=== PATIENT | male | born 1950 | race Caucasian/White ===

== ENCOUNTER 2021-01-04 07:41 | Inpatient (IN) | payer OTHER ==
[2021-01-04] MEDS ORDERED: PANTOPRAZOLE SODIUM 40 MG VIAL IVPUSH ONE (07:57)
[2021-01-04] MEDS ORDERED: ALBUTEROL SO4 2.5/IPRATROPIUM 0.5 INH SOL 3 ML VIAL.NEB. NEB ONE (08:30)
[2021-01-04 08:59] LABS: BASO % 0.1 % (0-2.0); HEMOGLOBIN 13.2 GM/dL (11.7-16.9); LYMPH % 2.8 % (8-40); MCH 26.2 pg (25.7-33.7); MCHC 32.1 g/dl (32.0-35.9); MEAN CELL VOLUME 81.7 fl (80-96); MEAN PLT VOLUME 8.1 fl (7.5-11.1); MONO % 1.9 % (3.8-10.2); NEUT % 95.2 % (42.8-82.8); PLATELET COUNT 394 K/MM3 (134-434); RBC 5.02 M/mm3 (4.00-5.60); RDW 20.8 % (11.9-15.9); WHITE BLOOD COUNT 15.7 K/mm3 (4.0-10.0)
[2021-01-04 09:01] LABS: VENOUS BASE EXCESS 1.9 mmol/L (-2-2); VENOUS O2 SATURATION 45.1 % (70-80); VENOUS PCO2 64.3 mmHg (38-52); VENOUS PH 7.29 (7.310-7.410)
[2021-01-04] MEDS ORDERED: VANCOMYCIN 1 GM in D5W (PRE-DOCKED) 1,000 MG/250 ML IVPB ONE (09:02)
[2021-01-04] MEDS ORDERED: PIPERACILLIN/TAZOB 3.375 GM 3.375 GM in DEXTROSE 5%-WATER - 50 ML IVPB ONE (09:02)
[2021-01-04 09:05] LABS: INR 1.14 (0.83-1.09); PROTHROMBIN TIME (PATIENT) 13.7 SEC (9.7-13.0)
[2021-01-04 09:08] LABS: ACTIVATED PTT 26.8 SECONDS (25.2-36.5)
[2021-01-04 09:09] LABS: CHLORIDE 95 mmol/L (98-107); SODIUM 133 mmol/L (136-145)
[2021-01-04 09:13] LABS: ALBUMIN 2.8 g/dl (3.4-5.0); BLOOD UREA NITROGEN 30.9 mg/dL (7-18); CALCIUM 9.8 mg/dL (8.5-10.1); LIPASE 132 U/L (73-393)
[2021-01-04 09:14] LABS: ANION GAP 7 MMOL/L (8-16); CO2 31 mmol/L (21-32); GLUCOSE,RANDOM 109 mg/dL (74-106)
[2021-01-04 09:16] LABS: CREATININE 0.6 mg/dL (0.55-1.3); SGOT/AST 50 U/L (15-37); SGPT/ALT 25 U/L (13-61)
[2021-01-04 09:17] LABS: BILIRUBIN,TOTAL 0.3 mg/dL (0.2-1); TOT PROT 9.8 g/dl (6.4-8.2)
[2021-01-04 09:18] LABS: ALK PHOS 126 U/L (45-117)
[2021-01-04] MEDS ORDERED: SODIUM CHLORIDE 0.9% 500 ML INFUS.BAG IV ONE (09:24)
[2021-01-04 09:34] LABS: LACTIC ACID 3.2 mmol/L (0.4-2.0)
[2021-01-04 10:30] LABS: ANISOCYTOSIS 1+; MACROCYTOSIS 0; PLATELET ESTIMATE NORMAL
[2021-01-04] MEDS ORDERED: ACETAMINOPHEN INJECTION 100 ML IVPB ONE (11:17)
[2021-01-04] MEDS ORDERED: ACETAMINOPHEN 1000 MG/100 ML VIAL (NON FORMULARY) IVPB ONE (11:17)
[2021-01-04] MEDS ORDERED: PIPERACILLIN/TAZOB 3.375 GM 3.375 GM/50 ML BAG IVPB ONE ×2 (11:18→12:58)
[2021-01-04] MEDS ORDERED: VANCOMYCIN 1 GRAM (PRE-DOCKED) 1,000 MG/250 ML BAG IVPB ONE (11:18)
[2021-01-04 14:28] LABS: CALCIUM 8.8 mg/dL (8.5-10.1)
[2021-01-04 14:29] LABS: ALBUMIN 2.2 g/dl (3.4-5.0); BLOOD UREA NITROGEN 30.3 mg/dL (7-18)
[2021-01-04] MEDS ORDERED: morphine SULFATE 4 MG/ML VIAL ONE (14:30)
[2021-01-04 14:32] LABS: CREATININE 0.4 mg/dL (0.55-1.3)
[2021-01-04 14:33] LABS: BILIRUBIN,TOTAL 0.4 mg/dL (0.2-1)
[2021-01-04 14:35] LABS: TOT PROT 7.2 g/dl (6.4-8.2)
[2021-01-04] MEDS ORDERED: FAMOTIDINE 20 MG/50 ML IVPB 20 MG/50 ML MG IVPB ONE ×2 (15:14→16:32)
[2021-01-04] MEDS ORDERED: morphine CARPU-JECT 4 MG/1 ML DISP.SYRIN IVPUSH ONE (16:32)
[2021-01-04] MEDS ORDERED: METOPROLOL TARTRATE 5 MG/5 ML VIAL IVPUSH PRN (17:30)
[2021-01-04 17:51] LABS: HEMATOCRIT 28.1 % (35.4-49); HEMOGLOBIN 8.9 GM/dL (11.7-16.9); MCH 25.6 pg (25.7-33.7); MCHC 31.5 g/dl (32.0-35.9); MEAN CELL VOLUME 81.2 fl (80-96); MEAN PLT VOLUME 7.9 fl (7.5-11.1); PLATELET COUNT 291 K/MM3 (134-434); RBC 3.46 M/mm3 (4.00-5.60); RDW 20.2 % (11.9-15.9); WHITE BLOOD COUNT 16.6 K/mm3 (4.0-10.0)
[2021-01-04] MEDS: DEXTROSE 5%-NORMAL SALINE 1,000 ML IV SCH (19:57)
[2021-01-04 20:16] LABS: EPI CELLS >36 /uL (0-25.1); HYALINE CASTS 5 /uL (0-3.1); PH,URINE 6.5 (5.0-8.0); URINE APPEARANCE CLEAR; URINE BACTERIA 34 /uL (0-1359); URINE BILIRUBIN NEGATIVE (NEGATIVE); URINE COLOR YELLOW; URINE GLUCOSE (UA) NEGATIVE (NEGATIVE); URINE KETONE NEGATIVE (NEGATIVE); URINE LEUK ESTERASE 1+ (NEGATIVE); URINE NITRITE NEGATIVE (NEGATIVE); URINE PROTEIN 1+ (NEGATIVE); URINE RBC 22 /uL (0-23.9); URINE WBC 91 /uL (0-25.8)
[2021-01-04] MEDS: INSULIN SLIDING SCALE (NOVOLOG) 1 VIAL SQ SCH (23:24)
[2021-01-05] MEDS ORDERED: ACETAMINOPHEN 1000 MG/100 ML VIAL (NON FORMULARY) IVPB ONE (01:06)
[2021-01-05] MEDS: INSULIN SLIDING SCALE (NOVOLOG) 1 VIAL SQ SCH ×4 (07:29→22:54)
[2021-01-05 08:10] LABS: HEMATOCRIT 26.6 % (35.4-49); HEMOGLOBIN 8.5 GM/dL (11.7-16.9); MCH 26.4 pg (25.7-33.7); MCHC 31.8 g/dl (32.0-35.9); MEAN CELL VOLUME 83.1 fl (80-96); MEAN PLT VOLUME 7.9 fl (7.5-11.1); PLATELET COUNT 244 K/MM3 (134-434); RDW 20.2 % (11.9-15.9); WHITE BLOOD COUNT 10.3 K/mm3 (4.0-10.0)
[2021-01-05 08:22] LABS: ALBUMIN 2.1 g/dl (3.4-5.0); BLOOD UREA NITROGEN 19.5 mg/dL (7-18); CALCIUM 8.3 mg/dL (8.5-10.1); MAGNESIUM 1.8 mg/dL (1.8-2.4)
[2021-01-05 08:25] LABS: CREATININE 0.4 mg/dL (0.55-1.3); PHOSPHOROUS 2.7 mg/dL (2.5-4.9)
[2021-01-05 08:26] LABS: BILIRUBIN,TOTAL 0.4 mg/dL (0.2-1); TOT PROT 6.8 g/dl (6.4-8.2)
[2021-01-05] MEDS ORDERED: PANTOPRAZOLE SODIUM 40 MG/100 ML BAG IVPB ONE (09:08)
[2021-01-05] MEDS: PANTOPRAZOLE SODIUM 40 MG VIAL IVPUSH SCH (09:10)
[2021-01-05] MEDS ORDERED: PIPERACILLIN/TAZOB 3.375 GM 3.375 GM/50 ML BAG IVPB ONE ×2 (11:17→18:35)
[2021-01-05] MEDS: PIPERACILLIN/TAZOB 3.375 GM 3.375 GM in DEXTROSE 5%-WATER - 50 ML IVPB SCH ×2 (11:24→19:00)
[2021-01-05] MEDS: DEXTROSE 5%-NORMAL SALINE 1,000 ML IV SCH ×2 (17:33→22:55)
[2021-01-05] MEDS: POLYETHYLENE GLYCOL 3350 119 GM BTL GT SCH (22:55)
[2021-01-06] MEDS ORDERED: PIPERACILLIN/TAZOBACTAM 3.375 GM VIAL IVPB ONE ×3 (01:20→17:53)
[2021-01-06] MEDS ORDERED: DEXTROSE 5%-WATER - 50 ML IVPB ONE ×3 (01:20→17:53)
[2021-01-06] MEDS: PIPERACILLIN/TAZOB 3.375 GM 3.375 GM in DEXTROSE 5%-WATER - 50 ML IVPB SCH ×3 (01:59→18:23)
[2021-01-06] MEDS: INSULIN SLIDING SCALE (NOVOLOG) 1 VIAL SQ SCH ×4 (06:47→22:15)
[2021-01-06] MEDS ORDERED: PNEUMOC 13-VAL CONJ-DIP CRM/PF 0.5 ML DISP.SYRIN IM ONE (10:00)
[2021-01-06] MEDS: POLYETHYLENE GLYCOL 3350 119 GM BTL GT SCH ×2 (10:48→22:15)
[2021-01-06 11:20] LABS: BASO % 0.5 % (0-2.0); HEMATOCRIT 24.5 % (35.4-49); HEMOGLOBIN 7.8 GM/dL (11.7-16.9); LYMPH % 10.8 % (8-40); MCH 26.3 pg (25.7-33.7); MCHC 31.8 g/dl (32.0-35.9); MEAN CELL VOLUME 82.8 fl (80-96); MEAN PLT VOLUME 7.7 fl (7.5-11.1); MONO % 4.7 % (3.8-10.2); PLATELET COUNT 225 K/MM3 (134-434); RBC 2.95 M/mm3 (4.00-5.60); RDW 19.8 % (11.9-15.9); WHITE BLOOD COUNT 8.3 K/mm3 (4.0-10.0)
[2021-01-06] MEDS: PANTOPRAZOLE SODIUM 40 MG VIAL IVPUSH SCH (11:24)
[2021-01-06 11:42] LABS: ALBUMIN 1.9 g/dl (3.4-5.0); BLOOD UREA NITROGEN 11.9 mg/dL (7-18); CALCIUM 8.7 mg/dL (8.5-10.1)
[2021-01-06 11:45] LABS: CREATININE 0.3 mg/dL (0.55-1.3)
[2021-01-06 11:47] LABS: BILIRUBIN,TOTAL 0.5 mg/dL (0.2-1); TOT PROT 6.5 g/dl (6.4-8.2)
[2021-01-06] MEDS: AMINO ACIDS/PROTEIN HYDROLYS 30 ML LIQUID.PKT GT SCH (18:22)
[2021-01-06] MEDS: DEXTROSE 5%-NORMAL SALINE 1,000 ML IV SCH (18:27)
[2021-01-06] MEDS: KCL 10 MEQ IVPB 10 MEQ/100 ML INFUS.BAG IVPB SCH ×2 (20:22→22:15)
[2021-01-07] MEDS ORDERED: DEXTROSE 5%-WATER - 50 ML IVPB ONE ×3 (00:58→18:38)
[2021-01-07] MEDS ORDERED: PIPERACILLIN/TAZOBACTAM 3.375 GM VIAL IVPB ONE ×3 (00:58→18:38)
[2021-01-07] MEDS: PIPERACILLIN/TAZOB 3.375 GM 3.375 GM in DEXTROSE 5%-WATER - 50 ML IVPB SCH ×3 (01:08→18:56)
[2021-01-07] MEDS: INSULIN SLIDING SCALE (NOVOLOG) 1 VIAL SQ SCH (06:00)
[2021-01-07 08:54] LABS: BASO % 0.6 % (0-2.0); EOS % 3.1 % (0-4.5); HEMATOCRIT 25.1 % (35.4-49); LYMPH % 12.7 % (8-40); MCH 26.5 pg (25.7-33.7); MCHC 31.8 g/dl (32.0-35.9); MEAN CELL VOLUME 83.4 fl (80-96); MEAN PLT VOLUME 7.9 fl (7.5-11.1); MONO % 6.1 % (3.8-10.2); NEUT % 77.5 % (42.8-82.8); PLATELET COUNT 237 K/MM3 (134-434); RBC 3.02 M/mm3 (4.00-5.60); RDW 19.6 % (11.9-15.9); WHITE BLOOD COUNT 7.3 K/mm3 (4.0-10.0)
[2021-01-07 09:15] LABS: ALBUMIN 1.9 g/dl (3.4-5.0); BLOOD UREA NITROGEN 13.7 mg/dL (7-18); CALCIUM 8.6 mg/dL (8.5-10.1)
[2021-01-07 09:19] LABS: CREATININE 0.4 mg/dL (0.55-1.3)
[2021-01-07 09:20] LABS: BILIRUBIN,TOTAL 0.3 mg/dL (0.2-1); TOT PROT 6.6 g/dl (6.4-8.2)
[2021-01-07] MEDS: AMINO ACIDS/PROTEIN HYDROLYS 30 ML LIQUID.PKT GT SCH ×2 (09:28→18:56)
[2021-01-07] MEDS: MULTIVIT-MINERALS ORAL LIQUID GT SCH (09:29)
[2021-01-07] MEDS: POLYETHYLENE GLYCOL 3350 119 GM BTL GT SCH ×3 (09:29→22:02)
[2021-01-07] MEDS: PANTOPRAZOLE SODIUM 40 MG VIAL IVPUSH SCH (09:32)
[2021-01-07] MEDS ORDERED: PT OWN MED DRAWER 7, Y5N ONE (09:36)
[2021-01-07] MEDS ORDERED: POTASSIUM CHLORIDE ORAL LIQUID 20 MEQ/15 ML GT ONE (09:59)
[2021-01-07] MEDS ORDERED: LOSARTAN POTASSIUM 50 MG TABLET GT SCH (10:15)
[2021-01-07] MEDS ORDERED: METOPROLOL TARTRATE 25 MG TABLET (FP) GT ONE (21:27)
[2021-01-08] MEDS ORDERED: DEXTROSE 5%-WATER - 50 ML IVPB ONE ×3 (01:47→17:19)
[2021-01-08] MEDS ORDERED: PIPERACILLIN/TAZOBACTAM 3.375 GM VIAL IVPB ONE ×3 (01:47→17:19)
[2021-01-08] MEDS: PIPERACILLIN/TAZOB 3.375 GM 3.375 GM in DEXTROSE 5%-WATER - 50 ML IVPB SCH ×3 (01:55→17:39)
[2021-01-08 08:40] LABS: BASO % 0.8 % (0-2.0); EOS % 4.6 % (0-4.5); HEMATOCRIT 25.1 % (35.4-49); LYMPH % 15.2 % (8-40); MCH 26.5 pg (25.7-33.7); MCHC 31.9 g/dl (32.0-35.9); MEAN CELL VOLUME 83.3 fl (80-96); MEAN PLT VOLUME 7.5 fl (7.5-11.1); MONO % 6.5 % (3.8-10.2); NEUT % 72.9 % (42.8-82.8); PLATELET COUNT 240 K/MM3 (134-434); RBC 3.01 M/mm3 (4.00-5.60); WHITE BLOOD COUNT 7.7 K/mm3 (4.0-10.0)
[2021-01-08 09:01] LABS: CALCIUM 8.4 mg/dL (8.5-10.1)
[2021-01-08 09:02] LABS: BLOOD UREA NITROGEN 16.3 mg/dL (7-18)
[2021-01-08 09:06] LABS: CREATININE 0.3 mg/dL (0.55-1.3)
[2021-01-08 09:07] LABS: BILIRUBIN,TOTAL 0.2 mg/dL (0.2-1); TOT PROT 6.6 g/dl (6.4-8.2)
[2021-01-08] MEDS: AMINO ACIDS/PROTEIN HYDROLYS 30 ML LIQUID.PKT GT SCH ×2 (09:54→17:39)
[2021-01-08] MEDS: MULTIVIT-MINERALS ORAL LIQUID GT SCH (09:54)
[2021-01-08] MEDS: PANTOPRAZOLE SODIUM 40 MG VIAL IVPUSH SCH (09:54)
[2021-01-08] MEDS: LOSARTAN POTASSIUM 50 MG TABLET GT SCH (09:54)
[2021-01-08] MEDS: POLYETHYLENE GLYCOL 3350 119 GM BTL GT SCH ×2 (09:54→21:27)
[2021-01-08] MEDS: COLLAGENASE CLOSTRIDIUM HIST. 30 GRAMS TUBE TP PRN (17:39)
[2021-01-09] MEDS ORDERED: DEXTROSE 5%-WATER - 50 ML IVPB ONE ×3 (02:57→16:37)
[2021-01-09] MEDS ORDERED: PIPERACILLIN/TAZOBACTAM 3.375 GM VIAL IVPB ONE ×3 (02:57→16:37)
[2021-01-09] MEDS: PIPERACILLIN/TAZOB 3.375 GM 3.375 GM in DEXTROSE 5%-WATER - 50 ML IVPB SCH ×3 (02:57→18:24)
[2021-01-09] MEDS: AMINO ACIDS/PROTEIN HYDROLYS 30 ML LIQUID.PKT GT SCH ×2 (11:11→16:39)
[2021-01-09] MEDS: LOSARTAN POTASSIUM 50 MG TABLET GT SCH (11:11)
[2021-01-09] MEDS: COLLAGENASE CLOSTRIDIUM HIST. 30 GRAMS TUBE TP PRN (11:12)
[2021-01-09] MEDS: MULTIVIT-MINERALS ORAL LIQUID GT SCH (11:12)
[2021-01-09] MEDS: PANTOPRAZOLE SODIUM 40 MG VIAL IVPUSH SCH (11:12)
[2021-01-09] MEDS: ACETAMINOPHEN 650 MG/20.3 ML ORAL SOLUTION (CUPS) GT PRN ×3 (11:14→21:51)
[2021-01-09] MEDS: POLYETHYLENE GLYCOL 3350 119 GM BTL GT SCH ×2 (11:27→21:31)
[2021-01-09 16:08] LABS: GLIADIN ANTIBODY IGA 5 units (0-19); GLIADIN ANTIBODY IGG 2 units (0-19); TRANSGLUTAMINASE IGG 4 U/mL (0-5)
[2021-01-10] MEDS ORDERED: PIPERACILLIN/TAZOBACTAM 3.375 GM VIAL IVPB ONE ×3 (00:19→17:29)
[2021-01-10] MEDS ORDERED: DEXTROSE 5%-WATER - 50 ML IVPB ONE ×3 (00:19→17:29)
[2021-01-10] MEDS: PIPERACILLIN/TAZOB 3.375 GM 3.375 GM in DEXTROSE 5%-WATER - 50 ML IVPB SCH ×3 (01:29→17:43)
[2021-01-10] MEDS ORDERED: PT OWN MED DRAWER 7, Y5N ONE (09:53)
[2021-01-10] MEDS: MULTIVIT-MINERALS ORAL LIQUID GT SCH (10:20)
[2021-01-10] MEDS: PANTOPRAZOLE SODIUM 40 MG VIAL IVPUSH SCH (10:20)
[2021-01-10] MEDS: LOSARTAN POTASSIUM 50 MG TABLET GT SCH (10:20)
[2021-01-10] MEDS: AMINO ACIDS/PROTEIN HYDROLYS 30 ML LIQUID.PKT GT SCH ×2 (10:20→17:43)
[2021-01-10] MEDS: POLYETHYLENE GLYCOL 3350 119 GM BTL GT SCH ×2 (10:20→21:01)
[2021-01-10] MEDS: LIDOCAINE 5% TOPICAL PATCH TP SCH (17:44)
[2021-01-10 19:36] VITALS: BMI 19.1
[2021-01-10] MEDS: ASCORBIC ACID 500 MG TABLET (FP) PO SCH (22:08)
[2021-01-11] MEDS ORDERED: DEXTROSE 5%-WATER - 50 ML IVPB ONE ×3 (01:02→17:28)
[2021-01-11] MEDS ORDERED: PIPERACILLIN/TAZOBACTAM 3.375 GM VIAL IVPB ONE ×3 (01:02→17:28)
[2021-01-11] MEDS: PIPERACILLIN/TAZOB 3.375 GM 3.375 GM in DEXTROSE 5%-WATER - 50 ML IVPB SCH ×3 (02:50→18:01)
[2021-01-11] MEDS: LIDOCAINE PATCH REMOVAL MC SCH (05:21)
[2021-01-11] MEDS ORDERED: PT OWN MED DRAWER 7, Y5N ONE (11:19)
[2021-01-11] MEDS: AMINO ACIDS/PROTEIN HYDROLYS 30 ML LIQUID.PKT GT SCH ×2 (11:56→18:01)
[2021-01-11] MEDS: PANTOPRAZOLE SODIUM 40 MG VIAL IVPUSH SCH (11:57)
[2021-01-11] MEDS: ZINC SULFATE 220 MG CAPSULE (FP) PO SCH (11:57)
[2021-01-11] MEDS: POLYETHYLENE GLYCOL 3350 119 GM BTL GT SCH ×2 (11:57→21:54)
[2021-01-11] MEDS: ASCORBIC ACID 500 MG TABLET (FP) PO SCH ×2 (11:57→21:56)
[2021-01-11] MEDS: MULTIVIT-MINERALS ORAL LIQUID GT SCH (11:57)
[2021-01-11] MEDS: LOSARTAN POTASSIUM 50 MG TABLET GT SCH (11:57)
[2021-01-11] MEDS: COLLAGENASE CLOSTRIDIUM HIST. 30 GRAMS TUBE TP PRN (11:58)
[2021-01-11] MEDS: LIDOCAINE 5% TOPICAL PATCH TP SCH (18:01)
[2021-01-12] MEDS ORDERED: PIPERACILLIN/TAZOBACTAM 3.375 GM VIAL IVPB ONE ×2 (02:26→11:09)
[2021-01-12] MEDS ORDERED: DEXTROSE 5%-WATER - 50 ML IVPB ONE ×2 (02:26→11:09)
[2021-01-12] MEDS: PIPERACILLIN/TAZOB 3.375 GM 3.375 GM in DEXTROSE 5%-WATER - 50 ML IVPB SCH ×2 (02:33→11:20)
[2021-01-12] MEDS: LIDOCAINE PATCH REMOVAL MC SCH (05:24)
[2021-01-12] MEDS: ASCORBIC ACID 500 MG TABLET (FP) PO SCH (11:19)
[2021-01-12] MEDS: AMINO ACIDS/PROTEIN HYDROLYS 30 ML LIQUID.PKT GT SCH (11:19)
[2021-01-12] MEDS: LOSARTAN POTASSIUM 50 MG TABLET GT SCH (11:19)
[2021-01-12] MEDS: PANTOPRAZOLE SODIUM 40 MG VIAL IVPUSH SCH (11:20)
[2021-01-12] MEDS: MULTIVIT-MINERALS ORAL LIQUID GT SCH (11:21)
[2021-01-12] MEDS ORDERED: PT OWN MED DRAWER 7, Y5N ONE (11:21)
[2021-01-12] MEDS: ZINC SULFATE 220 MG CAPSULE (FP) PO SCH (11:23)
[2021-01-12] MEDS: POLYETHYLENE GLYCOL 3350 119 GM BTL GT SCH (11:23)
[2021-01-12 11:46] VITALS: PULSE 70
[2021-01-12 15:39] VITALS: BP 127/75; TEMP 98.8
== END 2021-01-12 16:30 | DRG 207 ==
LOC: JER 07:41 → JERBED 09:27 → J5S 01-05 20:04
PROVIDERS: ADMIT Family Medicine; ATTEND Family Medicine
PROC: 5A1955Z Respiratory Ventilation, Greater than 96 Consecutive Hours (ICD-10-PCS; principal; 2021-01-04)
DX: J69.0 Pneumonitis due to inhalation of food and vomit (principal); L89.113 Pressure ulcer of right upper back, stage 3; L89.154 Pressure ulcer of sacral region, stage 4; K92.0 Hematemesis; R64 Cachexia; Z68.1 Body mass index [BMI] 19.9 or less, adult; J96.10 Chronic respiratory failure, unspecified whether with hypoxia or hypercapnia; E46 Unspecified protein-calorie malnutrition; Z99.11 Dependence on respirator [ventilator] status; Z93.0 Tracheostomy status; J44.9 Chronic obstructive pulmonary disease, unspecified; E11.9 Type 2 diabetes mellitus without complications; K21.9 Gastro-esophageal reflux disease without esophagitis; D72.829 Elevated white blood cell count, unspecified; K59.00 Constipation, unspecified; E87.6 Hypokalemia; D64.9 Anemia, unspecified
CPT/HCPCS: 36415; 71045-TC-FY; 71260-TC; 74018-TC-FY; 74177-TC; 80053; 80061; 81003; 82272; 82550; 82607; 82728; 82784; 82803; 82962; 83036; 83516; 83540; 83550; 83605; 83690; 83721; 83735; 84100; 84436; 84443; 84484; 85025; 85027; 85045; 85610; 85730; 87040; 87070; 87086; 87186; 87205; 87804; 90670; 93005; 93010; 94002; 97161-GP; 99285-25; C9803; J0131; Q9967; U0003; U0005

== ENCOUNTER 2021-04-07 14:46 | Inpatient (IN) | payer OTHER ==
[2021-04-07 16:20] LABS: HEMATOCRIT 22.2 % (35.4-49); HEMOGLOBIN 7.2 GM/dL (11.7-16.9); MCH 27.4 pg (25.7-33.7); MCHC 32.6 g/dl (32.0-35.9); MEAN CELL VOLUME 84.3 fl (80-96); MEAN PLT VOLUME 7.1 fl (7.5-11.1); PLATELET COUNT 481 10^3/uL (134-434); RBC 2.64 M/mm3 (4.00-5.60); RDW 15.4 % (11.9-15.9); WHITE BLOOD COUNT 11.3 K/mm3 (4.0-10.0)
[2021-04-07 16:29] LABS: INR 1.12 (0.83-1.09); PROTHROMBIN TIME (PATIENT) 13.5 SEC (9.7-13.0)
[2021-04-07 16:32] LABS: ACTIVATED PTT 27.7 SECONDS (25.2-36.5)
[2021-04-07 16:45] LABS: ALBUMIN 1.8 g/dl (3.4-5.0)
[2021-04-07 16:48] LABS: CREATININE 0.3 mg/dL (0.55-1.3)
[2021-04-07 16:50] LABS: BILIRUBIN,TOTAL 0.2 mg/dL (0.2-1); TOT PROT 6.9 g/dl (6.4-8.2)
[2021-04-07] MEDS ORDERED: morphine CARPU-JECT 4 MG/1 ML DISP.SYRIN IVPUSH ONE ×2 (16:55→20:04)
[2021-04-07] MEDS ORDERED: ACETAMINOPHEN 650 MG/20.3 ML ORAL SOLUTION (CUPS) GT PRN (17:16)
[2021-04-07] MEDS ORDERED: morphine SULFATE 4 MG/ML VIAL ONE ×2 (17:18→20:07)
[2021-04-07 17:55] LABS: ANISOCYTOSIS 0; MACROCYTOSIS 0; PLATELET ESTIMATE INCREASED
[2021-04-07] MEDS ORDERED: hydrALAZINE HCL 10 MG TABLET PO SCH (18:00)
[2021-04-07] MEDS ORDERED: LIDOCAINE 5% TOPICAL PATCH ONE (19:36)
[2021-04-07] MEDS: AMINO ACIDS/PROTEIN HYDROLYS 30 ML LIQUID.PKT GT SCH (20:10)
[2021-04-07] MEDS: LIDOCAINE 5% TOPICAL PATCH TP SCH (20:10)
[2021-04-07] MEDS ORDERED: HYDROmorphone HCL CARPU-JECT 2 MG/1 ML DISP.SYRIN IVPUSH ONE (21:09)
[2021-04-07] MEDS ORDERED: HYDROmorphone HCl 2 MG/ML VIAL ONE (21:15)
[2021-04-08] MEDS: hydrALAZINE HCL 10 MG TABLET GT SCH ×5 (01:08→21:05)
[2021-04-08] MEDS: POLYETHYLENE GLYCOL (HEALTHYLAX) 3350 17 GM PACKET GT SCH ×3 (01:08→21:08)
[2021-04-08] MEDS ORDERED: FUROSEMIDE 40 MG/4 ML INJECTABLE VIAL IVPUSH ONE (01:15)
[2021-04-08] MEDS: FAMOTIDINE 40 MG/5 ML ORAL SUSPENSION NGT SCH ×3 (05:55→21:08)
[2021-04-08] MEDS: GABAPENTIN 250 MG/5 ML ORAL SOLUTION, 470 ML BOTTLE GT SCH ×4 (05:55→21:07)
[2021-04-08] MEDS: MOMETASONE FUROATE 220 MCG/IH INHALER IH SCH ×2 (05:55→21:05)
[2021-04-08] MEDS ORDERED: PATIENT'S OWN MEDICATION (NON-FORMULARY) (Lidocaine Patch Removal 1 EACH Each) MC SCH (06:00)
[2021-04-08] MEDS: LIDOCAINE PATCH REMOVAL MC SCH (06:17)
[2021-04-08] MEDS: AMINO ACIDS/PROTEIN HYDROLYS 30 ML LIQUID.PKT GT SCH ×2 (08:49→18:24)
[2021-04-08 10:21] LABS: EPI CELLS 5 /uL (0-25.1); HYALINE CASTS 0 /uL (0-3.1); URINE APPEARANCE CLEAR; URINE BACTERIA 117 /uL (0-1359); URINE BILIRUBIN NEGATIVE (NEGATIVE); URINE COLOR YELLOW; URINE GLUCOSE (UA) NEGATIVE (NEGATIVE); URINE KETONE NEGATIVE (NEGATIVE); URINE LEUK ESTERASE TRACE (NEGATIVE); URINE NITRITE NEGATIVE (NEGATIVE); URINE PROTEIN NEGATIVE (NEGATIVE); URINE RBC 10 /uL (0-23.9); URINE UROBILINOGEN 0.2 mg/dL (0.2-1.0); URINE WBC 25 /uL (0-25.8)
[2021-04-08 10:42] LABS: HEMATOCRIT 29.4 % (35.4-49); HEMOGLOBIN 9.9 GM/dL (11.7-16.9); MCH 28.3 pg (25.7-33.7); MCHC 33.5 g/dl (32.0-35.9); MEAN CELL VOLUME 84.4 fl (80-96); MEAN PLT VOLUME 7.1 fl (7.5-11.1); PLATELET COUNT 489 10^3/uL (134-434); RBC 3.49 M/mm3 (4.00-5.60); WHITE BLOOD COUNT 13.8 K/mm3 (4.0-10.0)
[2021-04-08 11:07] LABS: BLOOD UREA NITROGEN 21.5 mg/dL (7-18); CALCIUM 9.1 mg/dL (8.5-10.1)
[2021-04-08 11:09] LABS: ALBUMIN 1.8 g/dl (3.4-5.0); MAGNESIUM 1.9 mg/dL (1.8-2.4)
[2021-04-08 11:11] LABS: CREATININE 0.4 mg/dL (0.55-1.3)
[2021-04-08 11:13] LABS: BILIRUBIN,TOTAL 0.9 mg/dL (0.2-1); TOT PROT 6.8 g/dl (6.4-8.2)
[2021-04-08] MEDS: LOSARTAN POTASSIUM 50 MG TABLET GT SCH (11:21)
[2021-04-08] MEDS ORDERED: SODIUM CHLORIDE 250 ML IV SCH (12:15)
[2021-04-08 13:22] VITALS: BMI 15.3
[2021-04-08] MEDS: LIDOCAINE 5% TOPICAL PATCH TP SCH (18:27)
[2021-04-08] MEDS: POTASSIUM CHLORIDE 10 MEQ in DEXTROSE 5%-NORMAL SALINE 1,000 ML IVPB SCH (20:19)
[2021-04-08] MEDS ORDERED: PT OWN MED DRAWER 7, Y5N ONE (20:44)
[2021-04-09] MEDS: GABAPENTIN 250 MG/5 ML ORAL SOLUTION, 470 ML BOTTLE GT SCH (05:30)
[2021-04-09] MEDS: POTASSIUM CHLORIDE 10 MEQ in DEXTROSE 5%-NORMAL SALINE 1,000 ML IVPB SCH (07:52)
[2021-04-09 09:57] LABS: EOS % 0.8 % (0-4.5); HEMATOCRIT 24.6 % (35.4-49); HEMOGLOBIN 8.3 GM/dL (11.7-16.9); LYMPH % 9.9 % (8-40); MCH 28.5 pg (25.7-33.7); MCHC 33.7 g/dl (32.0-35.9); MEAN CELL VOLUME 84.4 fl (80-96); MEAN PLT VOLUME 6.9 fl (7.5-11.1); MONO % 5.1 % (3.8-10.2); NEUT % 83.2 % (42.8-82.8); PLATELET COUNT 387 10^3/uL (134-434); RBC 2.91 M/mm3 (4.00-5.60); RDW 15.4 % (11.9-15.9); WHITE BLOOD COUNT 9.8 K/mm3 (4.0-10.0)
[2021-04-09] MEDS ORDERED: MULTIVIT-MINERALS ORAL LIQUID PO SCH (10:00)
[2021-04-09] MEDS: AMINO ACIDS/PROTEIN HYDROLYS 30 ML LIQUID.PKT GT SCH (10:22)
[2021-04-09] MEDS: POLYETHYLENE GLYCOL (HEALTHYLAX) 3350 17 GM PACKET GT SCH (10:23)
[2021-04-09] MEDS: FAMOTIDINE 40 MG/5 ML ORAL SUSPENSION NGT SCH (10:23)
[2021-04-09 10:30] VITALS: BP 113/75; PULSE 96; TEMP 99.9
[2021-04-09] MEDS: LOSARTAN POTASSIUM 50 MG TABLET GT SCH (10:31)
[2021-04-09] MEDS: LIDOCAINE PATCH REMOVAL MC SCH (10:31)
[2021-04-09] MEDS: hydrALAZINE HCL 10 MG TABLET GT SCH (10:31)
== END 2021-04-09 14:33 | DRG 811 ==
LOC: JER 14:46 → JERBED 16:43 → J5S 23:28
PROVIDERS: ADMIT Family Medicine; ATTEND Family Medicine
PROC: 5A1945Z Respiratory Ventilation, 24-96 Consecutive Hours (ICD-10-PCS; principal; 2021-04-07)
PROC: 30233N1 Transfusion of Nonautologous Red Blood Cells into Peripheral Vein, Percutaneous Approach (ICD-10-PCS; 2021-04-07)
DX: D64.9 Anemia, unspecified (principal); L89.153 Pressure ulcer of sacral region, stage 3; R64 Cachexia; G91.9 Hydrocephalus, unspecified; G81.90 Hemiplegia, unspecified affecting unspecified side; J96.10 Chronic respiratory failure, unspecified whether with hypoxia or hypercapnia; E46 Unspecified protein-calorie malnutrition; Z68.1 Body mass index [BMI] 19.9 or less, adult; Z93.0 Tracheostomy status; E11.9 Type 2 diabetes mellitus without complications; I25.10 Atherosclerotic heart disease of native coronary artery without angina pectoris; J44.9 Chronic obstructive pulmonary disease, unspecified; I10 Essential (primary) hypertension; I69.391 Dysphagia following cerebral infarction; K21.9 Gastro-esophageal reflux disease without esophagitis; D72.829 Elevated white blood cell count, unspecified
CPT/HCPCS: 36415; 36430; 71045-TC-FY; 80048; 80053; 81003; 82272; 82550; 82962; 83605; 83735; 84443; 84484; 85025; 85027; 85610; 85730; 86078; 86850; 86900; 86901; 86922; 87040; 93005; 93010; 94002; 99285-25; C9803; P9058; U0003; U0005

== ENCOUNTER 2021-04-14 03:22 | Inpatient (IN) | payer OTHER ==
[2021-04-14] MEDS ORDERED: SODIUM CHLORIDE 0.9% 500 ML INFUS.BAG IV ONE ×2 (03:56→06:32)
[2021-04-14 05:21] LABS: HEMATOCRIT 32.6 % (35.4-49); HEMOGLOBIN 10.4 GM/dL (11.7-16.9); MCH 28.3 pg (25.7-33.7); MCHC 32.1 g/dl (32.0-35.9); MEAN CELL VOLUME 88.3 fl (80-96); MEAN PLT VOLUME 7.3 fl (7.5-11.1); PLATELET COUNT 469 10^3/uL (134-434); RBC 3.69 M/mm3 (4.00-5.60); RDW 15.7 % (11.9-15.9); WHITE BLOOD COUNT 14.7 K/mm3 (4.0-10.0)
[2021-04-14 05:39] LABS: CHLORIDE 99 mmol/L (98-107); SODIUM 138 mmol/L (136-145)
[2021-04-14 05:41] LABS: ALBUMIN 1.6 g/dl (3.4-5.0); ANION GAP 7 MMOL/L (8-16); BLOOD UREA NITROGEN 26.3 mg/dL (7-18); CALCIUM 8.6 mg/dL (8.5-10.1); CO2 33 mmol/L (21-32); GLUCOSE,RANDOM 82 mg/dL (74-106)
[2021-04-14 05:44] LABS: CREATININE 0.7 mg/dL (0.55-1.3); SGOT/AST 16 U/L (15-37); SGPT/ALT 18 U/L (13-61)
[2021-04-14 05:46] LABS: BILIRUBIN,TOTAL 0.2 mg/dL (0.2-1); INR 1.13 (0.83-1.09); PROTHROMBIN TIME (PATIENT) 13.6 SEC (9.7-13.0); TOT PROT 6.4 g/dl (6.4-8.2)
[2021-04-14 05:47] LABS: ALK PHOS 86 U/L (45-117)
[2021-04-14 05:48] LABS: ACTIVATED PTT 30.5 SECONDS (25.2-36.5)
[2021-04-14 05:54] LABS: LACTIC ACID 4.1 mmol/L (0.4-2.0)
[2021-04-14 06:21] LABS: EPI CELLS >36 /uL (0-25.1); HYALINE CASTS 10 /uL (0-3.1); URINE APPEARANCE CLOUDY; URINE BACTERIA 7 /uL (0-1359); URINE BILIRUBIN NEGATIVE (NEGATIVE); URINE COLOR DK YELLOW; URINE GLUCOSE (UA) NEGATIVE (NEGATIVE); URINE KETONE TRACE (NEGATIVE); URINE LEUK ESTERASE 3+ (NEGATIVE); URINE NITRITE NEGATIVE (NEGATIVE); URINE PROTEIN TRACE (NEGATIVE); URINE RBC 13 /uL (0-23.9); URINE WBC 312 /uL (0-25.8)
[2021-04-14] MEDS ORDERED: VANCOMYCIN 1 GM in D5W (PRE-DOCKED) 1,000 MG/250 ML IVPB ONE (06:24)
[2021-04-14] MEDS ORDERED: PIPERACILLIN/TAZOB 4.5 GM 4.5 GM in DEXTROSE 5%-WATER 100 ML IVPB ONE (06:24)
[2021-04-14] MEDS ORDERED: PIPERACILLIN/TAZOB 4.5 GM 4.5 GM/100 ML BAG IVPB ONE (06:29)
[2021-04-14] MEDS ORDERED: SODIUM CHLORIDE IV ONE (07:06)
[2021-04-14 07:25] LABS: ARTERIAL BLD GAS O2 SATURATION 99.5 % (95-98); ARTERIAL BLOOD GAS BASE EXCESS 1.1 mmol/L (-2-2); ARTERIAL BLOOD GAS PO2 245.7 mmHg (80-100)
[2021-04-14] MEDS ORDERED: VANCOMYCIN 1 GRAM (PRE-DOCKED) 1,000 MG/250 ML BAG IVPB ONE (07:31)
[2021-04-14] MEDS ORDERED: LACTATED RINGERS SOLUTION 1000 ML INFUS.BAG IV ONE (08:09)
[2021-04-14 08:42] LABS: URINE CRYSTALS CA OXALATE FEW /hpf; YEAST NON SEEN (NEGATIVE)
[2021-04-14 09:54] LABS: ANISOCYTOSIS 1+; MACROCYTOSIS 0; PLATELET ESTIMATE NORMAL
[2021-04-14] MEDS ORDERED: ACETAMINOPHEN 650 MG/20.3 ML ORAL SOLUTION (CUPS) GT PRN (11:45)
[2021-04-14] MEDS ORDERED: FAMOTIDINE 40 MG/5 ML ORAL SUSPENSION NGT SCH (12:00)
[2021-04-14] MEDS: ENOXAPARIN NA (PORCINE) 40 MG/0.4 ML DISP.SYRIN SQ SCH (13:12)
[2021-04-14] MEDS: GABAPENTIN 250 MG/5 ML ORAL SOLUTION, 470 ML BOTTLE GT SCH ×2 (13:13→22:32)
[2021-04-14 13:58] VITALS: BMI 15.4
[2021-04-14] MEDS ORDERED: PIPERACILLIN/TAZOBACTAM 3.375 GM VIAL IVPB ONE (17:37)
[2021-04-14] MEDS ORDERED: DEXTROSE 5%-WATER - 50 ML IVPB ONE (17:38)
[2021-04-14] MEDS: AMINO ACIDS/PROTEIN HYDROLYS 30 ML LIQUID.PKT GT SCH (17:42)
[2021-04-14] MEDS: NOREPINEPHRINE NS PREMIX 8,000 MCG/500 ML BAG IVPB SCH (17:42)
[2021-04-14] MEDS: PIPERACILLIN/TAZOB 3.375 GM 3.375 GM in DEXTROSE 5%-WATER - 50 ML IVPB SCH (17:42)
[2021-04-14] MEDS: VANCOMYCIN 1 GRAM (PRE-DOCKED) 1,000 MG/250 ML BAG IVPB SCH (17:42)
[2021-04-14] MEDS: SODIUM CHLORIDE 1,000 ML IV SCH (18:41)
[2021-04-14] MEDS: MUPIROCIN 2% TOPICAL OINTMENT FOR DECOLONIZATION NS SCH (22:31)
[2021-04-14] MEDS: CHLORHEXIDINE GLUCONATE 4% CLEANSER FOR DECOLONIZATION TP SCH (22:31)
[2021-04-15] MEDS ORDERED: DEXTROSE 5%-WATER - 50 ML IVPB ONE ×3 (01:56→17:57)
[2021-04-15] MEDS ORDERED: PIPERACILLIN/TAZOBACTAM 3.375 GM VIAL IVPB ONE ×3 (01:56→17:57)
[2021-04-15] MEDS: PIPERACILLIN/TAZOB 3.375 GM 3.375 GM in DEXTROSE 5%-WATER - 50 ML IVPB SCH ×3 (02:12→18:32)
[2021-04-15] MEDS: GABAPENTIN 250 MG/5 ML ORAL SOLUTION, 470 ML BOTTLE GT SCH ×3 (05:22→22:01)
[2021-04-15] MEDS: VANCOMYCIN 1 GRAM (PRE-DOCKED) 1,000 MG/250 ML BAG IVPB SCH ×2 (05:49→19:05)
[2021-04-15 07:53] LABS: BASO % 0.5 % (0-2.0); EOS % 0.7 % (0-4.5); HEMATOCRIT 27.9 % (35.4-49); HEMOGLOBIN 9.1 GM/dL (11.7-16.9); LYMPH % 8.6 % (8-40); MCH 28.5 pg (25.7-33.7); MCHC 32.4 g/dl (32.0-35.9); MEAN CELL VOLUME 87.9 fl (80-96); MEAN PLT VOLUME 7.5 fl (7.5-11.1); MONO % 3.7 % (3.8-10.2); NEUT % 86.5 % (42.8-82.8); PLATELET COUNT 324 10^3/uL (134-434); RBC 3.18 M/mm3 (4.00-5.60); RDW 15.9 % (11.9-15.9); WHITE BLOOD COUNT 8.6 K/mm3 (4.0-10.0)
[2021-04-15 08:14] LABS: CALCIUM 8.3 mg/dL (8.5-10.1)
[2021-04-15 08:15] LABS: ALBUMIN 1.3 g/dl (3.4-5.0); BLOOD UREA NITROGEN 19.3 mg/dL (7-18)
[2021-04-15 08:18] LABS: CREATININE 0.3 mg/dL (0.55-1.3)
[2021-04-15 08:20] LABS: BILIRUBIN,TOTAL 0.2 mg/dL (0.2-1)
[2021-04-15] MEDS: ENOXAPARIN NA (PORCINE) 40 MG/0.4 ML DISP.SYRIN SQ SCH (10:17)
[2021-04-15] MEDS: AMINO ACIDS/PROTEIN HYDROLYS 30 ML LIQUID.PKT GT SCH ×2 (10:17→18:32)
[2021-04-15] MEDS: MUPIROCIN 2% TOPICAL OINTMENT FOR DECOLONIZATION NS SCH ×2 (10:17→22:01)
[2021-04-15] MEDS: FAMOTIDINE 40 MG/5 ML ORAL SUSPENSION NGT SCH ×2 (10:18→22:01)
[2021-04-15] MEDS: NOREPINEPHRINE NS PREMIX 8,000 MCG/500 ML BAG IVPB SCH (10:19)
[2021-04-15] MEDS ORDERED: PT OWN MED DRAWER 7, Y5N ONE ×2 (15:04→21:28)
[2021-04-15] MEDS: SODIUM CHLORIDE 1,000 ML IV SCH (18:32)
[2021-04-15] MEDS: CHLORHEXIDINE GLUCONATE 4% CLEANSER FOR DECOLONIZATION TP SCH (22:01)
[2021-04-16] MEDS ORDERED: PIPERACILLIN/TAZOBACTAM 3.375 GM VIAL IVPB ONE ×3 (01:34→16:41)
[2021-04-16] MEDS ORDERED: DEXTROSE 5%-WATER - 50 ML IVPB ONE ×3 (01:34→16:42)
[2021-04-16] MEDS: PIPERACILLIN/TAZOB 3.375 GM 3.375 GM in DEXTROSE 5%-WATER - 50 ML IVPB SCH ×3 (02:15→17:44)
[2021-04-16] MEDS: VANCOMYCIN 1 GRAM (PRE-DOCKED) 1,000 MG/250 ML BAG IVPB SCH ×2 (06:28→18:59)
[2021-04-16] MEDS: GABAPENTIN 250 MG/5 ML ORAL SOLUTION, 470 ML BOTTLE GT SCH ×3 (06:59→21:54)
[2021-04-16] MEDS ORDERED: PT OWN MED DRAWER 7, Y5N ONE (09:38)
[2021-04-16] MEDS: FAMOTIDINE 40 MG/5 ML ORAL SUSPENSION NGT SCH ×2 (09:40→21:54)
[2021-04-16] MEDS: ENOXAPARIN NA (PORCINE) 40 MG/0.4 ML DISP.SYRIN SQ SCH (09:40)
[2021-04-16] MEDS: AMINO ACIDS/PROTEIN HYDROLYS 30 ML LIQUID.PKT GT SCH ×2 (09:40→17:44)
[2021-04-16] MEDS: MUPIROCIN 2% TOPICAL OINTMENT FOR DECOLONIZATION NS SCH (11:18)
[2021-04-16] MEDS: NOREPINEPHRINE NS PREMIX 8,000 MCG/500 ML BAG IVPB SCH (11:18)
[2021-04-17] MEDS ORDERED: PIPERACILLIN/TAZOBACTAM 3.375 GM VIAL IVPB ONE ×3 (00:56→16:56)
[2021-04-17] MEDS ORDERED: DEXTROSE 5%-WATER - 50 ML IVPB ONE ×3 (00:57→16:57)
[2021-04-17] MEDS: PIPERACILLIN/TAZOB 3.375 GM 3.375 GM in DEXTROSE 5%-WATER - 50 ML IVPB SCH ×3 (01:13→17:14)
[2021-04-17] MEDS ORDERED: PT OWN MED DRAWER 7, Y5N ONE ×3 (05:08→21:43)
[2021-04-17] MEDS: GABAPENTIN 250 MG/5 ML ORAL SOLUTION, 470 ML BOTTLE GT SCH ×3 (05:28→21:45)
[2021-04-17] MEDS: VANCOMYCIN 1 GRAM (PRE-DOCKED) 1,000 MG/250 ML BAG IVPB SCH ×2 (05:29→18:34)
[2021-04-17] MEDS: AMINO ACIDS/PROTEIN HYDROLYS 30 ML LIQUID.PKT GT SCH ×2 (09:00→17:14)
[2021-04-17] MEDS: FAMOTIDINE 40 MG/5 ML ORAL SUSPENSION NGT SCH ×2 (10:46→21:45)
[2021-04-17] MEDS: ENOXAPARIN NA (PORCINE) 40 MG/0.4 ML DISP.SYRIN SQ SCH (11:05)
[2021-04-18] MEDS ORDERED: DEXTROSE 5%-WATER - 50 ML IVPB ONE ×3 (00:35→16:22)
[2021-04-18] MEDS ORDERED: PIPERACILLIN/TAZOBACTAM 3.375 GM VIAL IVPB ONE ×3 (00:35→16:22)
[2021-04-18] MEDS: PIPERACILLIN/TAZOB 3.375 GM 3.375 GM in DEXTROSE 5%-WATER - 50 ML IVPB SCH ×3 (01:28→17:25)
[2021-04-18] MEDS: GABAPENTIN 250 MG/5 ML ORAL SOLUTION, 470 ML BOTTLE GT SCH ×3 (05:15→21:46)
[2021-04-18] MEDS: VANCOMYCIN 1 GRAM (PRE-DOCKED) 1,000 MG/250 ML BAG IVPB SCH ×2 (05:47→17:31)
[2021-04-18] MEDS: ENOXAPARIN NA (PORCINE) 40 MG/0.4 ML DISP.SYRIN SQ SCH (09:37)
[2021-04-18] MEDS: AMINO ACIDS/PROTEIN HYDROLYS 30 ML LIQUID.PKT GT SCH ×2 (09:37→16:43)
[2021-04-18] MEDS: FAMOTIDINE 40 MG/5 ML ORAL SUSPENSION NGT SCH ×2 (09:39→21:44)
[2021-04-18] MEDS ORDERED: PT OWN MED DRAWER 7, Y5N ONE ×5 (09:39→21:44)
[2021-04-18] MEDS: COLLAGENASE CLOSTRIDIUM HIST. 30 GRAMS TUBE TP SCH (14:15)
[2021-04-19] MEDS ORDERED: PIPERACILLIN/TAZOBACTAM 3.375 GM VIAL IVPB ONE ×3 (00:57→16:45)
[2021-04-19] MEDS ORDERED: DEXTROSE 5%-WATER - 50 ML IVPB ONE ×3 (00:57→16:45)
[2021-04-19] MEDS: PIPERACILLIN/TAZOB 3.375 GM 3.375 GM in DEXTROSE 5%-WATER - 50 ML IVPB SCH ×3 (01:06→17:54)
[2021-04-19] MEDS ORDERED: PT OWN MED DRAWER 7, Y5N ONE ×3 (06:01→21:57)
[2021-04-19] MEDS: GABAPENTIN 250 MG/5 ML ORAL SOLUTION, 470 ML BOTTLE GT SCH ×3 (06:10→22:54)
[2021-04-19] MEDS: AMINO ACIDS/PROTEIN HYDROLYS 30 ML LIQUID.PKT GT SCH ×2 (12:42→17:54)
[2021-04-19] MEDS: FAMOTIDINE 40 MG/5 ML ORAL SUSPENSION NGT SCH ×2 (12:42→22:54)
[2021-04-19] MEDS: ENOXAPARIN NA (PORCINE) 40 MG/0.4 ML DISP.SYRIN SQ SCH (12:43)
[2021-04-19] MEDS: ACETAMINOPHEN 650 MG/20.3 ML ORAL SOLUTION (CUPS) GT PRN (12:43)
[2021-04-19] MEDS: COLLAGENASE CLOSTRIDIUM HIST. 30 GRAMS TUBE TP SCH (12:43)
[2021-04-19] MEDS ORDERED: ASCORBIC ACID 250 MG TABLET (FP) PO SCH (17:45)
[2021-04-19] MEDS ORDERED: ASCORBIC ACID 500 MG/5 ML PO SCH (18:00)
[2021-04-19] MEDS: MULTIVIT-MINERALS ORAL LIQUID GT SCH (18:39)
[2021-04-19] MEDS: ASCORBIC ACID 500 MG/5 ML GT SCH (18:40)
[2021-04-20] MEDS ORDERED: PIPERACILLIN/TAZOBACTAM 3.375 GM VIAL IVPB ONE ×3 (01:10→17:47)
[2021-04-20] MEDS ORDERED: DEXTROSE 5%-WATER - 50 ML IVPB ONE ×3 (01:10→17:47)
[2021-04-20] MEDS: PIPERACILLIN/TAZOB 3.375 GM 3.375 GM in DEXTROSE 5%-WATER - 50 ML IVPB SCH ×3 (02:01→19:00)
[2021-04-20] MEDS: GABAPENTIN 250 MG/5 ML ORAL SOLUTION, 470 ML BOTTLE GT SCH ×3 (05:22→21:37)
[2021-04-20 08:17] LABS: BASO % 0.9 % (0-2.0); EOS % 2.9 % (0-4.5); HEMATOCRIT 27.2 % (35.4-49); LYMPH % 11.4 % (8-40); MCH 28.3 pg (25.7-33.7); MCHC 32.9 g/dl (32.0-35.9); MEAN CELL VOLUME 86.1 fl (80-96); MEAN PLT VOLUME 7.5 fl (7.5-11.1); MONO % 5.8 % (3.8-10.2); PLATELET COUNT 330 10^3/uL (134-434); RBC 3.16 M/mm3 (4.00-5.60); RDW 15.9 % (11.9-15.9); WHITE BLOOD COUNT 8.6 K/mm3 (4.0-10.0)
[2021-04-20 08:31] LABS: BLOOD UREA NITROGEN 21.4 mg/dL (7-18); CALCIUM 8.3 mg/dL (8.5-10.1); MAGNESIUM 1.7 mg/dL (1.8-2.4)
[2021-04-20 08:34] LABS: CREATININE 0.4 mg/dL (0.55-1.3)
[2021-04-20] MEDS: AMINO ACIDS/PROTEIN HYDROLYS 30 ML LIQUID.PKT GT SCH ×2 (10:13→16:56)
[2021-04-20] MEDS: ASCORBIC ACID 500 MG/5 ML GT SCH (10:14)
[2021-04-20] MEDS: MULTIVIT-MINERALS ORAL LIQUID GT SCH (10:14)
[2021-04-20] MEDS: FAMOTIDINE 40 MG/5 ML ORAL SUSPENSION NGT SCH ×2 (10:14→21:37)
[2021-04-20] MEDS: ENOXAPARIN NA (PORCINE) 40 MG/0.4 ML DISP.SYRIN SQ SCH (10:14)
[2021-04-20] MEDS: COLLAGENASE CLOSTRIDIUM HIST. 30 GRAMS TUBE TP SCH (10:14)
[2021-04-20] MEDS ORDERED: PT OWN MED DRAWER 7, Y5N ONE ×2 (16:22→20:59)
[2021-04-20] MEDS: ACETAMINOPHEN 650 MG/20.3 ML ORAL SOLUTION (CUPS) GT PRN (16:56)
[2021-04-21] MEDS ORDERED: DEXTROSE 5%-WATER - 50 ML IVPB ONE ×3 (01:12→18:05)
[2021-04-21] MEDS ORDERED: PIPERACILLIN/TAZOBACTAM 3.375 GM VIAL IVPB ONE ×3 (01:12→18:05)
[2021-04-21] MEDS: PIPERACILLIN/TAZOB 3.375 GM 3.375 GM in DEXTROSE 5%-WATER - 50 ML IVPB SCH ×3 (01:50→18:11)
[2021-04-21] MEDS ORDERED: PT OWN MED DRAWER 7, Y5N ONE ×2 (04:11→09:51)
[2021-04-21] MEDS: GABAPENTIN 250 MG/5 ML ORAL SOLUTION, 470 ML BOTTLE GT SCH ×3 (05:34→21:14)
[2021-04-21] MEDS: AMINO ACIDS/PROTEIN HYDROLYS 30 ML LIQUID.PKT GT SCH ×2 (09:57→18:11)
[2021-04-21] MEDS: FAMOTIDINE 40 MG/5 ML ORAL SUSPENSION NGT SCH ×2 (09:57→22:41)
[2021-04-21] MEDS: ENOXAPARIN NA (PORCINE) 40 MG/0.4 ML DISP.SYRIN SQ SCH (09:57)
[2021-04-21] MEDS: COLLAGENASE CLOSTRIDIUM HIST. 30 GRAMS TUBE TP SCH (09:58)
[2021-04-21] MEDS: MULTIVIT-MINERALS ORAL LIQUID GT SCH (09:58)
[2021-04-21] MEDS: ASCORBIC ACID 500 MG/5 ML GT SCH (09:58)
[2021-04-22] MEDS ORDERED: PIPERACILLIN/TAZOBACTAM 3.375 GM VIAL IVPB ONE ×3 (00:56→17:57)
[2021-04-22] MEDS ORDERED: DEXTROSE 5%-WATER - 50 ML IVPB ONE ×3 (00:56→17:57)
[2021-04-22] MEDS: PIPERACILLIN/TAZOB 3.375 GM 3.375 GM in DEXTROSE 5%-WATER - 50 ML IVPB SCH ×3 (01:53→18:02)
[2021-04-22] MEDS: GABAPENTIN 250 MG/5 ML ORAL SOLUTION, 470 ML BOTTLE GT SCH ×3 (05:54→21:44)
[2021-04-22] MEDS ORDERED: PT OWN MED DRAWER 7, Y5N ONE (10:12)
[2021-04-22] MEDS: AMINO ACIDS/PROTEIN HYDROLYS 30 ML LIQUID.PKT GT SCH (10:21)
[2021-04-22] MEDS: ASCORBIC ACID 500 MG/5 ML GT SCH (10:21)
[2021-04-22] MEDS: FAMOTIDINE 40 MG/5 ML ORAL SUSPENSION NGT SCH ×2 (10:21→21:44)
[2021-04-22] MEDS: ENOXAPARIN NA (PORCINE) 40 MG/0.4 ML DISP.SYRIN SQ SCH (10:21)
[2021-04-22] MEDS: COLLAGENASE CLOSTRIDIUM HIST. 30 GRAMS TUBE TP SCH (10:21)
[2021-04-22] MEDS: MULTIVIT-MINERALS ORAL LIQUID GT SCH (10:21)
[2021-04-22 11:59] LABS: EOS % 2.8 % (0-4.5); HEMATOCRIT 29.8 % (35.4-49); HEMOGLOBIN 9.6 GM/dL (11.7-16.9); LYMPH % 11.2 % (8-40); MCH 28.4 pg (25.7-33.7); MCHC 32.4 g/dl (32.0-35.9); MEAN CELL VOLUME 87.7 fl (80-96); MEAN PLT VOLUME 7.5 fl (7.5-11.1); MONO % 5.4 % (3.8-10.2); NEUT % 79.6 % (42.8-82.8); PLATELET COUNT 332 10^3/uL (134-434); RDW 16.5 % (11.9-15.9); WHITE BLOOD COUNT 9.3 K/mm3 (4.0-10.0)
[2021-04-22 12:15] LABS: ARTERIAL BLD GAS O2 SATURATION 98.5 % (95-98); ARTERIAL BLOOD GAS BASE EXCESS 7.5 mmol/L (-2-2); ARTERIAL BLOOD GAS PO2 125.4 mmHg (80-100); ARTERIAL BLOOD GAS pH 7.421 (7.350-7.450)
[2021-04-22 12:17] LABS: ALLENS TEST POSITIVE
[2021-04-22 12:18] LABS: VENT MODE SIMV/PSV; VENT RATE 10
[2021-04-22 12:22] LABS: CALCIUM 8.7 mg/dL (8.5-10.1)
[2021-04-22 12:23] LABS: BLOOD UREA NITROGEN 19.1 mg/dL (7-18)
[2021-04-22 12:26] LABS: CREATININE 0.5 mg/dL (0.55-1.3)
[2021-04-22 12:27] LABS: BILIRUBIN,TOTAL 0.2 mg/dL (0.2-1); TOT PROT 7.1 g/dl (6.4-8.2)
[2021-04-22 12:41] LABS: ALBUMIN 1.7 g/dl (3.4-5.0)
[2021-04-22 18:34] VITALS: TEMP 98.8
[2021-04-22] MEDS: ACETAMINOPHEN 650 MG/20.3 ML ORAL SOLUTION (CUPS) GT PRN (23:07)
[2021-04-23] MEDS ORDERED: DEXTROSE 5%-WATER - 50 ML IVPB ONE ×2 (00:16→10:23)
[2021-04-23] MEDS ORDERED: PIPERACILLIN/TAZOBACTAM 3.375 GM VIAL IVPB ONE ×2 (00:16→10:23)
[2021-04-23] MEDS: PIPERACILLIN/TAZOB 3.375 GM 3.375 GM in DEXTROSE 5%-WATER - 50 ML IVPB SCH ×2 (01:33→10:54)
[2021-04-23 06:12] VITALS: BP 111/72
[2021-04-23] MEDS: GABAPENTIN 250 MG/5 ML ORAL SOLUTION, 470 ML BOTTLE GT SCH ×2 (06:15→14:20)
[2021-04-23] MEDS ORDERED: AMINO ACIDS/PROTEIN HYDROLYS 30 ML LIQUID.PKT GT SCH (08:00)
[2021-04-23 08:25] VITALS: PULSE 76
[2021-04-23] MEDS ORDERED: PT OWN MED DRAWER 7, Y5N ONE (10:23)
[2021-04-23] MEDS: MULTIVIT-MINERALS ORAL LIQUID GT SCH (10:51)
[2021-04-23] MEDS: ENOXAPARIN NA (PORCINE) 40 MG/0.4 ML DISP.SYRIN SQ SCH (10:51)
[2021-04-23] MEDS: COLLAGENASE CLOSTRIDIUM HIST. 30 GRAMS TUBE TP SCH (10:52)
[2021-04-23] MEDS: FAMOTIDINE 40 MG/5 ML ORAL SUSPENSION NGT SCH (10:52)
[2021-04-23] MEDS: ASCORBIC ACID 500 MG/5 ML GT SCH (10:52)
== END 2021-04-23 14:26 | DRG 870 ==
LOC: JER 03:22 → JERBED 08:37 → JICU 10:59 → J5S 04-16 13:24
PROVIDERS: ADMIT Family Medicine; ATTEND Family Medicine
PROC: 5A1955Z Respiratory Ventilation, Greater than 96 Consecutive Hours (ICD-10-PCS; principal; 2021-04-14)
PROC: 0D20XUZ Change Feeding Device in Upper Intestinal Tract, External Approach (ICD-10-PCS; 2021-04-20)
DX: A41.52 Sepsis due to Pseudomonas (principal); L89.154 Pressure ulcer of sacral region, stage 4; J69.0 Pneumonitis due to inhalation of food and vomit; R65.21 Severe sepsis with septic shock; J96.11 Chronic respiratory failure with hypoxia; E46 Unspecified protein-calorie malnutrition; G81.90 Hemiplegia, unspecified affecting unspecified side; G91.9 Hydrocephalus, unspecified; E87.2 Acidosis; N39.0 Urinary tract infection, site not specified; R64 Cachexia; Z99.11 Dependence on respirator [ventilator] status; K94.23 Gastrostomy malfunction; I69.391 Dysphagia following cerebral infarction; Z93.0 Tracheostomy status; Z93.1 Gastrostomy status; J44.9 Chronic obstructive pulmonary disease, unspecified; Y83.9 Surgical procedure, unspecified as the cause of abnormal reaction of the patient, or of later complication, without mention of misadventure at the time of the procedure; I10 Essential (primary) hypertension; D72.829 Elevated white blood cell count, unspecified
CPT/HCPCS: 36415; 36600; 70450-TC; 71045-TC-FY; 71250-TC; 74018-TC-FY; 80048; 80053; 81003; 82803; 82962; 83605; 83735; 84484; 85025; 85610; 85730; 87040; 87070; 87086; 87186; 87205; 87804; 93005; 93010; 94002; 99291; 99292; C9803; U0003; U0005

== ENCOUNTER 2021-09-10 13:39 | Inpatient (IN) | payer OTHER ==
[2021-09-10] MEDS ORDERED: SODIUM CHLORIDE 2,422 ML IV ONE (15:08)
[2021-09-10] MEDS ORDERED: VANCOMYCIN 1 GM in D5W (PRE-DOCKED) 1,000 MG/250 ML IVPB ONE (16:14)
[2021-09-10] MEDS ORDERED: PIPERACILLIN/TAZOB 3.375 GM 3.375 GM in DEXTROSE 5%-WATER - 50 ML IVPB ONE (16:14)
[2021-09-10] MEDS ORDERED: VANCOMYCIN 1 GRAM (PRE-DOCKED) 1,000 MG/250 ML BAG IVPB ONE (17:13)
[2021-09-10] MEDS ORDERED: PIPERACILLIN/TAZOB 3.375 GM 3.375 GM/50 ML BAG IVPB ONE (17:13)
[2021-09-10 17:20] LABS: VENOUS BASE EXCESS 9.2 mmol/L (-2-2); VENOUS O2 SATURATION 98.2 % (70-80); VENOUS PCO2 45.3 mmHg (38-52); VENOUS PH 7.487 (7.310-7.410)
[2021-09-10 17:24] LABS: BASO % 0.6 % (0-2.0); EOS % 2.6 % (0-4.5); HEMATOCRIT 23.6 % (35.4-49); HEMOGLOBIN 7.1 GM/dL (11.7-16.9); MCH 23.5 pg (25.7-33.7); MCHC 30.2 g/dl (32.0-35.9); MEAN CELL VOLUME 77.6 fl (80-96); MEAN PLT VOLUME 7.7 fl (7.5-11.1); MONO % 6.6 % (3.8-10.2); NEUT % 77.2 % (42.8-82.8); PLATELET COUNT 430 10^3/uL (134-434); RBC 3.04 M/mm3 (4.00-5.60); RDW 19.9 % (11.9-15.9)
[2021-09-10 17:32] LABS: INR 1.2 (0.83-1.09); PROTHROMBIN TIME (PATIENT) 13.8 SEC (9.7-13.0)
[2021-09-10 17:35] LABS: ACTIVATED PTT 31.1 SECONDS (25.2-36.5)
[2021-09-10 17:39] LABS: CHLORIDE 99 mmol/L (98-107); SODIUM 139 mmol/L (136-145)
[2021-09-10 17:42] LABS: CALCIUM 9.2 mg/dL (8.5-10.1)
[2021-09-10 17:43] LABS: ALBUMIN 1.7 g/dl (3.4-5.0); ANION GAP 2 MMOL/L (8-16); BLOOD UREA NITROGEN 25.2 mg/dL (7-18); CO2 38 mmol/L (21-32); GLUCOSE,RANDOM 79 mg/dL (74-106)
[2021-09-10 17:46] LABS: CREATININE 0.4 mg/dL (0.55-1.3); SGOT/AST 14 U/L (15-37); SGPT/ALT 12 U/L (13-61)
[2021-09-10 17:47] LABS: TOT PROT 7.7 g/dl (6.4-8.2)
[2021-09-10 17:48] LABS: BILIRUBIN,TOTAL 0.2 mg/dL (0.2-1)
[2021-09-10 17:49] LABS: ALK PHOS 85 U/L (45-117)
[2021-09-11] MEDS ORDERED: PIPERACILLIN/TAZOB 4.5 GM 4.5 GM in DEXTROSE 5%-WATER 100 ML IVPB SCH ×2 (02:00→10:00)
[2021-09-11] MEDS ORDERED: VANCOMYCIN/WATER 1,250 MG/250 ML BAG IVPB SCH (04:00)
[2021-09-11] MEDS ORDERED: VANCOMYCIN/WATER BAGS 1,250 MG/250 ML BAG IVPB SCH ×2 (04:00→09:00)
[2021-09-11 06:50] LABS: BASO % 0.9 % (0-2.0); EOS % 3.7 % (0-4.5); LYMPH % 15.1 % (8-40); MCH 22.9 pg (25.7-33.7); MCHC 29.5 g/dl (32.0-35.9); MEAN CELL VOLUME 77.6 fl (80-96); MEAN PLT VOLUME 7.6 fl (7.5-11.1); MONO % 5.7 % (3.8-10.2); NEUT % 74.6 % (42.8-82.8); PLATELET COUNT 406 10^3/uL (134-434); RBC 2.71 M/mm3 (4.00-5.60); RDW 19.5 % (11.9-15.9); WHITE BLOOD COUNT 8.3 K/mm3 (4.0-10.0)
[2021-09-11 06:52] LABS: HEMOGLOBIN 6.2 GM/dL (11.7-16.9)
[2021-09-11 07:14] LABS: CALCIUM 8.8 mg/dL (8.5-10.1)
[2021-09-11 07:15] LABS: BLOOD UREA NITROGEN 21.6 mg/dL (7-18); MAGNESIUM 2.2 mg/dL (1.8-2.4)
[2021-09-11 07:18] LABS: CREATININE 0.3 mg/dL (0.55-1.3); PHOSPHOROUS 3.1 mg/dL (2.5-4.9)
[2021-09-11] MEDS: AMINO ACIDS/PROTEIN HYDROLYS 30 ML LIQUID.PKT GT SCH ×2 (08:51→18:00)
[2021-09-11] MEDS ORDERED: PIPERACILLIN/TAZOB 4.5 GM 4.5 GM/100 ML BAG IVPB ONE (08:54)
[2021-09-11] MEDS: GABAPENTIN 250 MG/5 ML ORAL SOLUTION, 470 ML BOTTLE GT SCH ×3 (09:25→23:08)
[2021-09-11] MEDS: MULTIVIT-MINERALS ORAL LIQUID GT SCH (09:28)
[2021-09-11] MEDS: SODIUM CHLORIDE 1 GM TABLET GT SCH (09:29)
[2021-09-11] MEDS: ASCORBIC ACID 500 MG/5 ML UNIT DOSE CUP GT SCH (09:29)
[2021-09-11] MEDS: ARTIFICIAL TEARS (POLYVINYL ALCOHOL) OPTH DROPS OU SCH ×2 (11:09→23:08)
[2021-09-11] MEDS: COLLAGENASE CLOSTRIDIUM HIST. 30 GRAMS TUBE TP SCH (11:51)
[2021-09-11] MEDS ORDERED: ACETAMINOPHEN 650 MG/20.3 ML ORAL SOLUTION (CUPS) ONE (13:21)
[2021-09-11] MEDS: ACETAMINOPHEN 650 MG/20.3 ML ORAL SOLUTION (CUPS) PO PRN (13:27)
[2021-09-11] MEDS ORDERED: MEROPENEM 1 GM VIAL (RESTRICTED TO ID) IVPB ONE (22:18)
[2021-09-11] MEDS: MEROPENEM 1 GM in DEXTROSE 5%-WATER 100 ML IVPB SCH (22:40)
[2021-09-11] MEDS ORDERED: VANCOMYCIN 1 GRAM (PRE-DOCKED) 1,000 MG/250 ML BAG IVPB ONE (23:36)
[2021-09-12] MEDS: VANCOMYCIN 1 GRAM (PRE-DOCKED) 1,000 MG/250 ML BAG IVPB SCH ×3 (00:02→23:13)
[2021-09-12] MEDS: SENNOSIDES 8.8 MG/5 ML BULK BOTTLE GT SCH ×2 (00:28→22:41)
[2021-09-12] MEDS ORDERED: DEXTROSE 5%-WATER 100 ML IVPB ONE ×3 (02:49→16:42)
[2021-09-12] MEDS ORDERED: MEROPENEM 1 GM VIAL (RESTRICTED TO ID) IVPB ONE ×3 (02:49→16:42)
[2021-09-12] MEDS: MEROPENEM 1 GM in DEXTROSE 5%-WATER 100 ML IVPB SCH ×3 (02:53→17:18)
[2021-09-12] MEDS: AMINO ACIDS/PROTEIN HYDROLYS 30 ML LIQUID.PKT GT SCH ×2 (09:00→17:17)
[2021-09-12 09:25] VITALS: BMI 15.7
[2021-09-12 10:38] LABS: BASO % 1.1 % (0-2.0); EOS % 4.3 % (0-4.5); HEMATOCRIT 25.2 % (35.4-49); HEMOGLOBIN 8.3 GM/dL (11.7-16.9); LYMPH % 12.8 % (8-40); MCH 25.8 pg (25.7-33.7); MCHC 32.9 g/dl (32.0-35.9); MEAN CELL VOLUME 78.4 fl (80-96); MEAN PLT VOLUME 7.4 fl (7.5-11.1); MONO % 5.2 % (3.8-10.2); NEUT % 76.6 % (42.8-82.8); PLATELET COUNT 379 10^3/uL (134-434); RBC 3.22 M/mm3 (4.00-5.60); RDW 18.7 % (11.9-15.9); RETICULOCYTES 2.76 % (0.5-1.5)
[2021-09-12] MEDS: GABAPENTIN 250 MG/5 ML ORAL SOLUTION, 470 ML BOTTLE GT SCH ×3 (11:00→22:40)
[2021-09-12 11:01] LABS: CREATININE 0.4 mg/dL (0.55-1.3)
[2021-09-12] MEDS: ARTIFICIAL TEARS (POLYVINYL ALCOHOL) OPTH DROPS OU SCH ×2 (12:23→22:40)
[2021-09-12] MEDS: COLLAGENASE CLOSTRIDIUM HIST. 30 GRAMS TUBE TP SCH (13:00)
[2021-09-12] MEDS: SODIUM CHLORIDE 1 GM TABLET GT SCH (15:20)
[2021-09-12] MEDS: MULTIVIT-MINERALS ORAL LIQUID GT SCH (15:20)
[2021-09-12] MEDS: ASCORBIC ACID 500 MG/5 ML UNIT DOSE CUP GT SCH (15:20)
[2021-09-12 19:35] LABS: EPI CELLS >36 /uL (0-25.1); HYALINE CASTS 4 /uL (0-3.1); URINE APPEARANCE CLEAR; URINE BACTERIA 0 /uL (0-1359); URINE BILIRUBIN NEGATIVE (NEGATIVE); URINE COLOR YELLOW; URINE GLUCOSE (UA) NEGATIVE (NEGATIVE); URINE KETONE NEGATIVE (NEGATIVE); URINE LEUK ESTERASE TRACE (NEGATIVE); URINE NITRITE NEGATIVE (NEGATIVE); URINE PROTEIN NEGATIVE (NEGATIVE); URINE RBC 11 /uL (0-23.9); URINE WBC 174 /uL (0-25.8)
[2021-09-12 20:12] LABS: YEAST FEW (NEGATIVE)
[2021-09-12] MEDS: PIPERACILLIN/TAZOB 4.5 GM 4.5 GM in DEXTROSE 5%-WATER 100 ML IVPB SCH (22:03)
[2021-09-13] MEDS ORDERED: DEXTROSE 5%-WATER 100 ML IVPB ONE ×3 (02:12→16:39)
[2021-09-13] MEDS ORDERED: MEROPENEM 1 GM VIAL (RESTRICTED TO ID) IVPB ONE ×3 (02:12→16:39)
[2021-09-13] MEDS: MEROPENEM 1 GM in DEXTROSE 5%-WATER 100 ML IVPB SCH ×3 (02:12→17:11)
[2021-09-13] MEDS: GABAPENTIN 250 MG/5 ML ORAL SOLUTION, 470 ML BOTTLE GT SCH ×3 (05:24→21:19)
[2021-09-13] MEDS: ACETAMINOPHEN 650 MG/20.3 ML ORAL SOLUTION (CUPS) PO PRN (05:25)
[2021-09-13] MEDS: AMINO ACIDS/PROTEIN HYDROLYS 30 ML LIQUID.PKT GT SCH ×2 (09:00→17:11)
[2021-09-13] MEDS: MULTIVIT-MINERALS ORAL LIQUID GT SCH (10:08)
[2021-09-13] MEDS: ASCORBIC ACID 500 MG/5 ML UNIT DOSE CUP GT SCH (10:08)
[2021-09-13] MEDS: SODIUM CHLORIDE 1 GM TABLET GT SCH (10:12)
[2021-09-13] MEDS: ARTIFICIAL TEARS (POLYVINYL ALCOHOL) OPTH DROPS OU SCH ×2 (10:13→21:19)
[2021-09-13] MEDS: VANCOMYCIN 1 GRAM (PRE-DOCKED) 1,000 MG/250 ML BAG IVPB SCH ×2 (11:40→22:43)
[2021-09-13 12:53] LABS: BASO % 0.9 % (0-2.0); EOS % 3.7 % (0-4.5); HEMATOCRIT 27.9 % (35.4-49); HEMOGLOBIN 8.5 GM/dL (11.7-16.9); LYMPH % 10.8 % (8-40); MCH 24.4 pg (25.7-33.7); MCHC 30.4 g/dl (32.0-35.9); MEAN CELL VOLUME 80.4 fl (80-96); MEAN PLT VOLUME 7.3 fl (7.5-11.1); MONO % 4.9 % (3.8-10.2); NEUT % 79.7 % (42.8-82.8); PLATELET COUNT 373 10^3/uL (134-434); RBC 3.47 M/mm3 (4.00-5.60); RDW 19.7 % (11.9-15.9); WHITE BLOOD COUNT 11.8 K/mm3 (4.0-10.0)
[2021-09-13] MEDS: COLLAGENASE CLOSTRIDIUM HIST. 30 GRAMS TUBE TP SCH (13:11)
[2021-09-13 13:20] LABS: CALCIUM 8.7 mg/dL (8.5-10.1)
[2021-09-13 13:21] LABS: ALBUMIN 1.6 g/dl (3.4-5.0); BLOOD UREA NITROGEN 18.8 mg/dL (7-18)
[2021-09-13 13:24] LABS: CREATININE 0.4 mg/dL (0.55-1.3)
[2021-09-13 13:25] LABS: BILIRUBIN,TOTAL 0.5 mg/dL (0.2-1); TOT PROT 7.3 g/dl (6.4-8.2)
[2021-09-13] MEDS: SENNOSIDES 8.8 MG/5 ML BULK BOTTLE GT SCH (21:19)
[2021-09-14] MEDS ORDERED: MEROPENEM 1 GM VIAL (RESTRICTED TO ID) IVPB ONE ×3 (00:57→17:35)
[2021-09-14] MEDS ORDERED: DEXTROSE 5%-WATER 100 ML IVPB ONE ×3 (00:58→17:35)
[2021-09-14] MEDS: MEROPENEM 1 GM in DEXTROSE 5%-WATER 100 ML IVPB SCH ×3 (01:49→17:37)
[2021-09-14] MEDS: GABAPENTIN 250 MG/5 ML ORAL SOLUTION, 470 ML BOTTLE GT SCH ×3 (05:27→21:26)
[2021-09-14] MEDS: SODIUM CHLORIDE 1 GM TABLET GT SCH (10:57)
[2021-09-14] MEDS: COLLAGENASE CLOSTRIDIUM HIST. 30 GRAMS TUBE TP SCH (10:57)
[2021-09-14] MEDS: MULTIVIT-MINERALS ORAL LIQUID GT SCH (10:58)
[2021-09-14] MEDS: ASCORBIC ACID 500 MG/5 ML UNIT DOSE CUP GT SCH (10:58)
[2021-09-14] MEDS: AMINO ACIDS/PROTEIN HYDROLYS 30 ML LIQUID.PKT GT SCH ×2 (10:58→16:39)
[2021-09-14] MEDS: ARTIFICIAL TEARS (POLYVINYL ALCOHOL) OPTH DROPS OU SCH (10:58)
[2021-09-14] MEDS: VANCOMYCIN 1 GRAM (PRE-DOCKED) 1,000 MG/250 ML BAG IVPB SCH (12:46)
[2021-09-14] MEDS: BACITRACIN 15 GM TUBE TOPICAL OINTMENT TP SCH (17:34)
[2021-09-14] MEDS: SENNOSIDES 8.8 MG/5 ML BULK BOTTLE GT SCH (21:26)
[2021-09-14] MEDS: ZINC OXIDE 20% TOPICAL OINTMENT 30 GM TUBE TP SCH (23:08)
[2021-09-15] MEDS: ARTIFICIAL TEARS (POLYVINYL ALCOHOL) OPTH DROPS OU SCH ×3 (00:07→23:34)
[2021-09-15] MEDS ORDERED: MEROPENEM 1 GM VIAL (RESTRICTED TO ID) IVPB ONE ×3 (00:41→17:17)
[2021-09-15] MEDS ORDERED: DEXTROSE 5%-WATER 100 ML IVPB ONE ×3 (00:41→17:17)
[2021-09-15] MEDS: MEROPENEM 1 GM in DEXTROSE 5%-WATER 100 ML IVPB SCH ×3 (01:17→17:30)
[2021-09-15] MEDS: GABAPENTIN 250 MG/5 ML ORAL SOLUTION, 470 ML BOTTLE GT SCH ×3 (05:21→23:32)
[2021-09-15] MEDS: AMINO ACIDS/PROTEIN HYDROLYS 30 ML LIQUID.PKT GT SCH ×2 (10:07→17:30)
[2021-09-15] MEDS: MULTIVIT-MINERALS ORAL LIQUID GT SCH (10:07)
[2021-09-15] MEDS: ASCORBIC ACID 500 MG/5 ML UNIT DOSE CUP GT SCH (10:09)
[2021-09-15] MEDS: SODIUM CHLORIDE 1 GM TABLET GT SCH (10:09)
[2021-09-15] MEDS ORDERED: SODIUM CHLORIDE 250 ML IV STA (11:43)
[2021-09-15] MEDS: COLLAGENASE CLOSTRIDIUM HIST. 30 GRAMS TUBE TP SCH (12:43)
[2021-09-15] MEDS: BACITRACIN 15 GM TUBE TOPICAL OINTMENT TP SCH (12:43)
[2021-09-15] MEDS: ZINC OXIDE 20% TOPICAL OINTMENT 30 GM TUBE TP SCH ×2 (12:43→23:34)
[2021-09-15] MEDS: SODIUM CHLORIDE 1,000 ML IV SCH (13:42)
[2021-09-15] MEDS: DOXAZOSIN MESYLATE 1 MG TABLET GT SCH (23:32)
[2021-09-15] MEDS: SENNOSIDES 8.8 MG/5 ML BULK BOTTLE GT SCH (23:33)
[2021-09-16] MEDS ORDERED: MEROPENEM 1 GM VIAL (RESTRICTED TO ID) IVPB ONE ×3 (02:10→18:16)
[2021-09-16] MEDS: MEROPENEM 1 GM in DEXTROSE 5%-WATER 100 ML IVPB SCH ×3 (02:11→18:18)
[2021-09-16] MEDS ORDERED: DEXTROSE 5%-WATER 100 ML IVPB ONE ×3 (02:11→18:16)
[2021-09-16] MEDS: GABAPENTIN 250 MG/5 ML ORAL SOLUTION, 470 ML BOTTLE GT SCH ×3 (05:56→21:58)
[2021-09-16 09:44] LABS: HEMATOCRIT 26.2 % (35.4-49); MCH 25.1 pg (25.7-33.7); MCHC 30.5 g/dl (32.0-35.9); MEAN CELL VOLUME 82.2 fl (80-96); MEAN PLT VOLUME 7.7 fl (7.5-11.1); PLATELET COUNT 312 10^3/uL (134-434); RBC 3.19 M/mm3 (4.00-5.60); WHITE BLOOD COUNT 9.2 K/mm3 (4.0-10.0)
[2021-09-16 10:58] LABS: ALBUMIN 1.4 g/dl (3.4-5.0); CALCIUM 8.2 mg/dL (8.5-10.1)
[2021-09-16 11:01] LABS: CREATININE 0.3 mg/dL (0.55-1.3)
[2021-09-16 11:03] LABS: TOT PROT 6.8 g/dl (6.4-8.2)
[2021-09-16 11:04] LABS: BILIRUBIN,TOTAL 0.5 mg/dL (0.2-1)
[2021-09-16 11:05] LABS: BLOOD UREA NITROGEN 23.3 mg/dL (7-18)
[2021-09-16] MEDS: SODIUM CHLORIDE 1 GM TABLET GT SCH (11:18)
[2021-09-16] MEDS: BACITRACIN 15 GM TUBE TOPICAL OINTMENT TP SCH (11:18)
[2021-09-16] MEDS: ARTIFICIAL TEARS (POLYVINYL ALCOHOL) OPTH DROPS OU SCH ×2 (11:18→22:01)
[2021-09-16] MEDS: COLLAGENASE CLOSTRIDIUM HIST. 30 GRAMS TUBE TP SCH (11:18)
[2021-09-16] MEDS: AMINO ACIDS/PROTEIN HYDROLYS 30 ML LIQUID.PKT GT SCH ×2 (11:18→18:18)
[2021-09-16] MEDS: ASCORBIC ACID 500 MG/5 ML UNIT DOSE CUP GT SCH (11:19)
[2021-09-16] MEDS: MULTIVIT-MINERALS ORAL LIQUID GT SCH (11:19)
[2021-09-16] MEDS: ZINC OXIDE 20% TOPICAL OINTMENT 30 GM TUBE TP SCH ×2 (11:19→22:00)
[2021-09-16] MEDS: DOXAZOSIN MESYLATE 1 MG TABLET GT SCH (11:44)
[2021-09-16] MEDS: SODIUM CHLORIDE 1,000 ML IV SCH ×2 (13:29→18:17)
[2021-09-16] MEDS: SENNOSIDES 8.8 MG/5 ML BULK BOTTLE GT SCH (21:59)
[2021-09-17] MEDS ORDERED: MEROPENEM 1 GM VIAL (RESTRICTED TO ID) IVPB ONE ×3 (00:12→18:27)
[2021-09-17] MEDS ORDERED: DEXTROSE 5%-WATER 100 ML IVPB ONE ×3 (00:13→18:27)
[2021-09-17] MEDS: MEROPENEM 1 GM in DEXTROSE 5%-WATER 100 ML IVPB SCH ×3 (01:23→18:32)
[2021-09-17] MEDS: GABAPENTIN 250 MG/5 ML ORAL SOLUTION, 470 ML BOTTLE GT SCH ×3 (06:31→22:58)
[2021-09-17] MEDS: SODIUM CHLORIDE 1,000 ML IV SCH ×4 (08:16→23:41)
[2021-09-17] MEDS: MULTIVIT-MINERALS ORAL LIQUID GT SCH (09:48)
[2021-09-17] MEDS: ASCORBIC ACID 500 MG/5 ML UNIT DOSE CUP GT SCH (09:48)
[2021-09-17] MEDS: AMINO ACIDS/PROTEIN HYDROLYS 30 ML LIQUID.PKT GT SCH ×2 (09:48→18:32)
[2021-09-17] MEDS: BACITRACIN 15 GM TUBE TOPICAL OINTMENT TP SCH (09:49)
[2021-09-17] MEDS: ARTIFICIAL TEARS (POLYVINYL ALCOHOL) OPTH DROPS OU SCH ×2 (09:49→22:59)
[2021-09-17] MEDS: SODIUM CHLORIDE 1 GM TABLET GT SCH (09:49)
[2021-09-17] MEDS: DOXAZOSIN MESYLATE 1 MG TABLET GT SCH (09:49)
[2021-09-17] MEDS: ZINC OXIDE 20% TOPICAL OINTMENT 30 GM TUBE TP SCH ×2 (09:50→23:00)
[2021-09-17] MEDS: COLLAGENASE CLOSTRIDIUM HIST. 30 GRAMS TUBE TP SCH (09:50)
[2021-09-17] MEDS: ACETAMINOPHEN 650 MG/20.3 ML ORAL SOLUTION (CUPS) PO PRN ×2 (13:55→23:41)
[2021-09-17] MEDS: SENNOSIDES 8.8 MG/5 ML BULK BOTTLE GT SCH (22:59)
[2021-09-18] MEDS ORDERED: MEROPENEM 1 GM VIAL (RESTRICTED TO ID) IVPB ONE ×3 (00:58→17:15)
[2021-09-18] MEDS ORDERED: DEXTROSE 5%-WATER 100 ML IVPB ONE ×3 (00:58→17:15)
[2021-09-18] MEDS: MEROPENEM 1 GM in DEXTROSE 5%-WATER 100 ML IVPB SCH ×3 (01:28→17:19)
[2021-09-18] MEDS: GABAPENTIN 250 MG/5 ML ORAL SOLUTION, 470 ML BOTTLE GT SCH ×3 (05:47→21:47)
[2021-09-18] MEDS: SODIUM CHLORIDE 1 GM TABLET GT SCH (09:17)
[2021-09-18] MEDS: AMINO ACIDS/PROTEIN HYDROLYS 30 ML LIQUID.PKT GT SCH ×2 (09:17→17:19)
[2021-09-18] MEDS: MULTIVIT-MINERALS ORAL LIQUID GT SCH (09:18)
[2021-09-18] MEDS: ASCORBIC ACID 500 MG/5 ML UNIT DOSE CUP GT SCH (09:18)
[2021-09-18] MEDS: ARTIFICIAL TEARS (POLYVINYL ALCOHOL) OPTH DROPS OU SCH ×2 (09:28→21:46)
[2021-09-18 10:03] LABS: HEMATOCRIT 23.3 % (35.4-49); MCHC 30.2 g/dl (32.0-35.9); MEAN CELL VOLUME 82.7 fl (80-96); MEAN PLT VOLUME 7.9 fl (7.5-11.1); PLATELET COUNT 283 10^3/uL (134-434); RBC 2.82 M/mm3 (4.00-5.60); RDW 20.9 % (11.9-15.9); WHITE BLOOD COUNT 8.6 K/mm3 (4.0-10.0)
[2021-09-18 10:26] LABS: CALCIUM 8.1 mg/dL (8.5-10.1)
[2021-09-18 10:27] LABS: BLOOD UREA NITROGEN 21.1 mg/dL (7-18)
[2021-09-18 10:30] LABS: CREATININE 0.2 mg/dL (0.55-1.3)
[2021-09-18] MEDS: DOXAZOSIN MESYLATE 1 MG TABLET GT SCH (12:05)
[2021-09-18] MEDS: COLLAGENASE CLOSTRIDIUM HIST. 30 GRAMS TUBE TP SCH (12:05)
[2021-09-18] MEDS: BACITRACIN 15 GM TUBE TOPICAL OINTMENT TP SCH (12:05)
[2021-09-18] MEDS: ZINC OXIDE 20% TOPICAL OINTMENT 30 GM TUBE TP SCH ×2 (12:06→21:49)
[2021-09-18] MEDS: SENNOSIDES 8.8 MG/5 ML BULK BOTTLE GT SCH (21:49)
[2021-09-18] MEDS: ACETAMINOPHEN 650 MG/20.3 ML ORAL SOLUTION (CUPS) PO PRN (21:50)
[2021-09-19] MEDS ORDERED: DEXTROSE 5%-WATER 100 ML IVPB ONE ×3 (02:15→17:34)
[2021-09-19] MEDS ORDERED: MEROPENEM 1 GM VIAL (RESTRICTED TO ID) IVPB ONE ×3 (02:15→17:34)
[2021-09-19] MEDS: MEROPENEM 1 GM in DEXTROSE 5%-WATER 100 ML IVPB SCH ×3 (03:09→17:40)
[2021-09-19] MEDS: GABAPENTIN 250 MG/5 ML ORAL SOLUTION, 470 ML BOTTLE GT SCH ×3 (06:56→23:57)
[2021-09-19] MEDS: AMINO ACIDS/PROTEIN HYDROLYS 30 ML LIQUID.PKT GT SCH ×2 (08:11→17:40)
[2021-09-19] MEDS: SODIUM CHLORIDE 1 GM TABLET GT SCH (09:30)
[2021-09-19] MEDS: BACITRACIN 15 GM TUBE TOPICAL OINTMENT TP SCH (09:30)
[2021-09-19] MEDS: MULTIVIT-MINERALS ORAL LIQUID GT SCH (09:30)
[2021-09-19] MEDS: DOXAZOSIN MESYLATE 1 MG TABLET GT SCH (09:30)
[2021-09-19] MEDS: ARTIFICIAL TEARS (POLYVINYL ALCOHOL) OPTH DROPS OU SCH ×2 (09:31→23:52)
[2021-09-19] MEDS: COLLAGENASE CLOSTRIDIUM HIST. 30 GRAMS TUBE TP SCH (09:52)
[2021-09-19] MEDS: ZINC OXIDE 20% TOPICAL OINTMENT 30 GM TUBE TP SCH ×2 (09:52→23:55)
[2021-09-19] MEDS: ASCORBIC ACID 500 MG/5 ML UNIT DOSE CUP GT SCH (10:26)
[2021-09-19] MEDS: ACETAMINOPHEN 650 MG/20.3 ML ORAL SOLUTION (CUPS) PO PRN (21:18)
[2021-09-19] MEDS: SENNOSIDES 8.8 MG/5 ML BULK BOTTLE GT SCH (21:20)
[2021-09-19] MEDS: SODIUM CHLORIDE 1,000 ML IV SCH (23:52)
[2021-09-20] MEDS ORDERED: MEROPENEM 1 GM VIAL (RESTRICTED TO ID) IVPB ONE ×3 (01:07→17:34)
[2021-09-20] MEDS ORDERED: DEXTROSE 5%-WATER 100 ML IVPB ONE ×3 (01:07→17:34)
[2021-09-20] MEDS: MEROPENEM 1 GM in DEXTROSE 5%-WATER 100 ML IVPB SCH ×3 (02:28→17:54)
[2021-09-20] MEDS: GABAPENTIN 250 MG/5 ML ORAL SOLUTION, 470 ML BOTTLE GT SCH ×3 (05:32→22:52)
[2021-09-20 06:55] LABS: ARTERIAL BLD GAS O2 SATURATION 98.3 % (95-98); ARTERIAL BLOOD GAS BASE EXCESS 7.8 mmol/L (-2-2); ARTERIAL BLOOD GAS PO2 123.3 mmHg (80-100); ARTERIAL BLOOD GAS pH 7.371 (7.350-7.450)
[2021-09-20 07:01] LABS: ALLENS TEST POSITIVE
[2021-09-20 07:02] LABS: VENT MODE A/C
[2021-09-20 07:03] LABS: VENT RATE 14
[2021-09-20] MEDS: AMINO ACIDS/PROTEIN HYDROLYS 30 ML LIQUID.PKT GT SCH ×2 (08:30→17:54)
[2021-09-20] MEDS: ASCORBIC ACID 500 MG/5 ML UNIT DOSE CUP GT SCH (09:07)
[2021-09-20] MEDS: MULTIVIT-MINERALS ORAL LIQUID GT SCH (09:07)
[2021-09-20] MEDS: DOXAZOSIN MESYLATE 1 MG TABLET GT SCH (09:07)
[2021-09-20] MEDS: SODIUM CHLORIDE 1 GM TABLET GT SCH (09:07)
[2021-09-20 09:11] LABS: HEMATOCRIT 27.6 % (35.4-49); HEMOGLOBIN 8.8 GM/dL (11.7-16.9); MCH 26.7 pg (25.7-33.7); MCHC 31.7 g/dl (32.0-35.9); MEAN PLT VOLUME 7.7 fl (7.5-11.1); PLATELET COUNT 287 10^3/uL (134-434); RBC 3.28 M/mm3 (4.00-5.60); RDW 19.8 % (11.9-15.9); WHITE BLOOD COUNT 6.8 K/mm3 (4.0-10.0)
[2021-09-20 09:48] LABS: BLOOD UREA NITROGEN 20.3 mg/dL (7-18)
[2021-09-20 09:53] LABS: CALCIUM 8.2 mg/dL (8.5-10.1)
[2021-09-20 09:58] LABS: ALBUMIN 1.2 g/dl (3.4-5.0)
[2021-09-20 10:01] LABS: BILIRUBIN,TOTAL 0.3 mg/dL (0.2-1); CREATININE 0.2 mg/dL (0.55-1.3); TOT PROT 6.2 g/dl (6.4-8.2)
[2021-09-20] MEDS: BACITRACIN 15 GM TUBE TOPICAL OINTMENT TP SCH (11:25)
[2021-09-20] MEDS: ARTIFICIAL TEARS (POLYVINYL ALCOHOL) OPTH DROPS OU SCH ×2 (11:25→22:53)
[2021-09-20] MEDS: COLLAGENASE CLOSTRIDIUM HIST. 30 GRAMS TUBE TP SCH (11:26)
[2021-09-20] MEDS: ZINC OXIDE 20% TOPICAL OINTMENT 30 GM TUBE TP SCH ×2 (11:26→22:53)
[2021-09-20] MEDS: SENNOSIDES 8.8 MG/5 ML BULK BOTTLE GT SCH (22:53)
[2021-09-21] MEDS ORDERED: DEXTROSE 5%-WATER 100 ML IVPB ONE ×2 (01:40→11:05)
[2021-09-21] MEDS ORDERED: MEROPENEM 1 GM VIAL (RESTRICTED TO ID) IVPB ONE ×2 (01:40→11:05)
[2021-09-21] MEDS: MEROPENEM 1 GM in DEXTROSE 5%-WATER 100 ML IVPB SCH ×2 (02:18→11:24)
[2021-09-21] MEDS: GABAPENTIN 250 MG/5 ML ORAL SOLUTION, 470 ML BOTTLE GT SCH ×3 (05:40→23:18)
[2021-09-21] MEDS: MULTIVIT-MINERALS ORAL LIQUID GT SCH (11:24)
[2021-09-21] MEDS: AMINO ACIDS/PROTEIN HYDROLYS 30 ML LIQUID.PKT GT SCH ×2 (11:24→18:11)
[2021-09-21] MEDS: ASCORBIC ACID 500 MG/5 ML UNIT DOSE CUP GT SCH (11:25)
[2021-09-21] MEDS: ARTIFICIAL TEARS (POLYVINYL ALCOHOL) OPTH DROPS OU SCH ×2 (11:25→21:44)
[2021-09-21] MEDS: DOXAZOSIN MESYLATE 1 MG TABLET GT SCH (11:26)
[2021-09-21] MEDS: SODIUM CHLORIDE 1 GM TABLET GT SCH (11:26)
[2021-09-21] MEDS: BACITRACIN 15 GM TUBE TOPICAL OINTMENT TP SCH (16:03)
[2021-09-21] MEDS: COLLAGENASE CLOSTRIDIUM HIST. 30 GRAMS TUBE TP SCH (16:03)
[2021-09-21] MEDS: ZINC OXIDE 20% TOPICAL OINTMENT 30 GM TUBE TP SCH ×2 (16:04→21:45)
[2021-09-21] MEDS: SENNOSIDES 8.8 MG/5 ML BULK BOTTLE GT SCH (23:18)
[2021-09-22] MEDS: GABAPENTIN 250 MG/5 ML ORAL SOLUTION, 470 ML BOTTLE GT SCH ×2 (05:26→16:12)
[2021-09-22 08:39] LABS: HEMATOCRIT 26.9 % (35.4-49); HEMOGLOBIN 8.6 GM/dL (11.7-16.9); MCH 26.5 pg (25.7-33.7); MCHC 31.9 g/dl (32.0-35.9); MEAN CELL VOLUME 83.2 fl (80-96); MEAN PLT VOLUME 7.7 fl (7.5-11.1); PLATELET COUNT 333 10^3/uL (134-434); RBC 3.23 M/mm3 (4.00-5.60); RDW 20.6 % (11.9-15.9); WHITE BLOOD COUNT 7.5 K/mm3 (4.0-10.0)
[2021-09-22 08:57] LABS: ALBUMIN 1.3 g/dl (3.4-5.0); BLOOD UREA NITROGEN 19.4 mg/dL (7-18)
[2021-09-22 08:59] LABS: CREATININE 0.3 mg/dL (0.55-1.3)
[2021-09-22 09:01] LABS: BILIRUBIN,TOTAL 0.3 mg/dL (0.2-1); TOT PROT 6.2 g/dl (6.4-8.2)
[2021-09-22] MEDS: AMINO ACIDS/PROTEIN HYDROLYS 30 ML LIQUID.PKT GT SCH ×2 (09:55→16:57)
[2021-09-22] MEDS: ARTIFICIAL TEARS (POLYVINYL ALCOHOL) OPTH DROPS OU SCH (09:56)
[2021-09-22] MEDS: DOXAZOSIN MESYLATE 1 MG TABLET GT SCH (09:57)
[2021-09-22] MEDS: ASCORBIC ACID 500 MG/5 ML UNIT DOSE CUP GT SCH (09:58)
[2021-09-22] MEDS: MULTIVIT-MINERALS ORAL LIQUID GT SCH (09:58)
[2021-09-22] MEDS: SODIUM CHLORIDE 1 GM TABLET GT SCH (09:58)
[2021-09-22] MEDS: ACETAMINOPHEN 650 MG/20.3 ML ORAL SOLUTION (CUPS) PO PRN (09:59)
[2021-09-22] MEDS: BACITRACIN 15 GM TUBE TOPICAL OINTMENT TP SCH (10:40)
[2021-09-22] MEDS: ZINC OXIDE 20% TOPICAL OINTMENT 30 GM TUBE TP SCH (10:41)
[2021-09-22] MEDS: COLLAGENASE CLOSTRIDIUM HIST. 30 GRAMS TUBE TP SCH (13:02)
[2021-09-22 18:05] VITALS: BP 95/65; PULSE 81; TEMP 98.7
== END 2021-09-22 19:22 | DRG 207 ==
LOC: JER 13:39 → JERBED 17:18 → J5S 09-12 01:49
PROVIDERS: ADMIT Internal Medicine; ATTEND Family Medicine
PROC: 5A1955Z Respiratory Ventilation, Greater than 96 Consecutive Hours (ICD-10-PCS; principal; 2021-09-10)
PROC: 30233N1 Transfusion of Nonautologous Red Blood Cells into Peripheral Vein, Percutaneous Approach (ICD-10-PCS; 2021-09-11)
DX: J69.0 Pneumonitis due to inhalation of food and vomit (principal); L89.154 Pressure ulcer of sacral region, stage 4; L89.103 Pressure ulcer of unspecified part of back, stage 3; E43 Unspecified severe protein-calorie malnutrition; J98.11 Atelectasis; J96.11 Chronic respiratory failure with hypoxia; K94.23 Gastrostomy malfunction; R64 Cachexia; Z68.1 Body mass index [BMI] 19.9 or less, adult; E87.2 Acidosis; E87.1 Hypo-osmolality and hyponatremia; Z93.0 Tracheostomy status; E11.9 Type 2 diabetes mellitus without complications; N40.0 Benign prostatic hyperplasia without lower urinary tract symptoms; D64.9 Anemia, unspecified; I25.10 Atherosclerotic heart disease of native coronary artery without angina pectoris; R33.9 Retention of urine, unspecified
CPT/HCPCS: 36415; 36430; 36511; 36600; 71045-TC-FY; 76775-TC; 76856-TC; 80048; 80053; 81003; 82272; 82784; 82803; 82962; 83540; 83550; 83605; 83735; 84100; 84155; 84165; 84484; 85025; 85027; 85045; 85610; 85730; 86140; 86334; 86850; 86900; 86901; 86922; 87040; 87070; 87086; 87186; 87205; 87899; 93005; 93010; 94002; 99285-25; C9803; E0372; G0480; P9038; P9058; U0003; U0005